=== PATIENT | female | born 1965 | race Caucasian/White ===

== ENCOUNTER 2018-09-28 16:34 | Emergency (ER) | payer OTHER ==
[~2018-09-28] VITALS: Ht 157.5 cm; Wt 102.1 kg
--- OUTSIDE RECORDS SUMMARY | ~2018-09-28 | XMS | Encounter Summary ---
Demographics + + + | Address | [address] | | | [place] [address] | + + + | Home Phone | | + + + | Preferred Language | Unknown | + + + | Marital Status | Single | + + + | Gnosticism Affiliation | Unknown | + + + | Race | Unknown | + + + | Ethnic Group | Unknown | + + + Author + + + | Author | [facility] | | | and [place] | + + + | Organization | [facility] | | | and [place] | + + + | Address | Unknown | + + + | Phone | Unavailable | + + + Support + + +---------+ + | Name | Relationship | Address | Phone | + + +---------+ + | Zoey Mondragon | ECON | Unknown | | + + +---------+ + Care Team Providers + +------+ + | Care Metal Roofer Name | Role | Phone | + +------+ + | Renetta Weinstein DO | PCP | | + +------+ + Reason for Visit + + + | Reason | Comments | + + + | Knee Pain | | + + + Encounter Details +--------+ + + + + | Date | Type | Department | Care Team | Description | +--------+ + + + + | 02// | Telephone | [facility] | Renetta Weinstein | Knee Pain | | 2019 | | [facility] | DO Mounika [address] | | | | | [facility] | [place], [place] | | | | | [address] [place], | [address] | | | | | [place] [address] | [phone] | | | | | [phone] | | | +--------+ + + + + Social History + +-------+ [...] on file | | + + + as of this encounter Plan of Treatment Not on fileas of this encounter Visit Diagnoses Not on filein this encounter"
--- OUTSIDE RECORDS SUMMARY | ~2018-09-28 | XMS | Encounter Summary ---
Demographics + + + | Address | [address] | | | [place] [address] | + + + | Home Phone | | + + + | Preferred Language | Unknown | + + + | Marital Status | Single | + + + | Christian Affiliation | Unknown | + + + | Race | Unknown | + + + | Ethnic Group | Unknown | + + + Author + + + | Author | [facility] | | | and [place] | + + + | Organization | [facility] | | | and [place] | [...] Team Providers + +------+ + | Care Pig Furnace Operator Name | Role | Phone | + +------+ + | Renetta Weinstein DO | PCP | | + +------+ + Reason for Visit + + + | Reason | Comments | + + + | Medication Refill | | + + + Encounter Details +--------+--------+ + + + | Date | Type | Department | Care Team | Description | +--------+--------+ + + + | 08/11/ | Refill | [facility] | Renetta Weinstein | Medication Refill | | 2018 | | [facility] | Mounika, DO [address] | | | | | [address] | [address] [place], [place] | | | | | [address] [place], | [address] | | | | | [place] [address] | [phone] | | | | | [phone] | | | +--------+--------+ + + + Social History + +-------+ [...]
--- OUTSIDE RECORDS SUMMARY | ~2018-09-28 | XMS | Encounter Summary ---
Demographics + + + | Address | [address] | | | [place] [address] | + + + | Home Phone | | + + + | Preferred Language | Unknown | + + + | Marital Status | Single | + + + | Yarsani Affiliation | Unknown | + + + | Race | Unknown | + + + | Ethnic Group | Unknown | + + + Author + + + | Author | [facility] | | | and [place] | + + + | Organization | [facility] | | | and [place] | [...] Team Providers + +------+ + | Care Screen Repairer Crusher Name | Role | Phone | + [...] Description | +--------+--------+ + + + | 09/11/ | Refill | [facility] | Renetta Weinstein | Medication Refill | | 2018 | | [facility] | Mounika, DO [address] | | | | | [address] | [address] [place], [place] | | | | | [address] [place], | [address] | | | | | [place] [address] | [phone] | | | | | [phone] | | | +--------+--------+ + + + [...]
--- OUTSIDE RECORDS SUMMARY | ~2018-09-28 | XMS | Encounter Summary ---
Demographics + + + | Address | [address] | | | [place] [address] | + + + | Home Phone | | + + + | Preferred Language | Unknown | + + + | Marital Status | Single | + + + | Nondenominational Affiliation | Unknown | + + + | Race | Unknown | + + + | Ethnic Group | Unknown | + + + Author + + + | Author | [facility] | | | and [place] | + + + | Organization | [facility] | | | and [place] [...] Team Providers + +------+ + | Care Facilities And Grounds Director Name | Role | Phone | + [...] Description | +--------+--------+ + + + | 07/25/ | Refill | [facility] | Renetta Weinstein | Medication Refill | | 2019 | | [facility] | Mounika, DO [address] | | | | | [address] | [address] [place], [place] | | | | | [address] [place], | [address] | | | | | [place] [address] | [phone] | | | | | [phone] | | | +--------+--------+ + + + [...]
--- OUTSIDE RECORDS SUMMARY | ~2018-09-28 | XMS | Encounter Summary ---
Demographics + + + | Address | [address] | | | [place] [address] | + + + | Home Phone | | + + + | Preferred Language | Unknown | + + + | Marital Status | Single | + + + | Jainism Affiliation | Unknown | + + + | Race | Unknown | + + + | Ethnic Group | Unknown | + + + Author + + + | Author | [facility] | | | and [place] | + + + | Organization | [facility] | | | and [place] [...] Team Providers + +------+ + | Care Solder Technician Name | Role | Phone | + +------+ + | Renetta Weinstein DO | PCP | | + +------+ + Reason for Visit + + + | Reason | Comments | + + + | Medication Question | | + + + Encounter Details +--------+ + + + + | Date | Type | Department | Care Team | Description | +--------+ + + + + | 09/25/ | Telephone | [facility] | Renetta Weinstein | Medication Question | | 2019 | | [facility] | Mounika, DO [address] | | | | | [address] | [place], [place] | | | | | [address] [place], | [address] | | | | | [place] [address] | [phone] | | | | | [phone] | | | +--------+ + + + [...]
--- OUTSIDE RECORDS SUMMARY | ~2018-09-28 | XMS | Clinical Summary ---
Demographics + + + | Address | [address] | | | [place] [address] | + + + | Home Phone | | + + + | Preferred Language | Unknown | + + + | Marital Status | Unknown | + + + | Congregational Affiliation | Unknown | + + + | Race | Unknown | + + + | Ethnic Group | Unknown | + + + Author + + + | Author | [facility] | + + + | Organization | [facility] | + + + | Address | Unknown | + + + | Phone | Unavailable | + + + Support +--------+ +---------+ + | Name | Relationship | Address | Phone | +--------+ +---------+ + | No,One | ECON | Unknown | | +--------+ +---------+ + Care Team Providers + +------+ + | Care Electrical Engineer Mep Name | Role | Phone | + +------+ + | Tasneem Wang PA-C | PP | | + +------+ + Allergies Not on File Current Medications Not on file Active Problems Not on file Social History + +-------+ +--------+------+ | Tobacco Use | Types | Packs/Day | Years | Date | | | | | Used | | + +-------+ +--------+------+ | Never Assessed | | | | | + +-------+ +--------+------+ + + + | Sex Assigned at | Date Recorded | | | | + + + | Not on file | | + + + Plan of Treatment Not on file Results Not on filefrom Last 3 Months Insurance + +--------+ +------+-------+ + | Payer | Benefi | Subscriber | Type | Phone | Address | | | t Plan | ID | | | | | | / | | | | | | | Group | | | | | + +--------+ +------+-------+ + | MEDICAID | [place] | [id number] | | | [address] | | | N | | | | [place], [place] | | | [place] | | | | [address] | | | [employer] | | | | | + +--------+ +------+-------+ + + +--------+ +--------+ + + | Guarantor Name | Accoun | Relation to | Date | Phone | Billing Address | | | t Type | Patient | of | | | | | | | | | | + +--------+ +--------+ + + | ZOEY DURAN | Person | Self | [birth year] | Home: | [address] | | | [place] | | 1965 | [phone] [place] [address] | | | [place] | | [phone] | | + +--------+ +--------+ + +"
--- OUTSIDE RECORDS SUMMARY | ~2018-09-28 | XMS | Clinical Summary ---
Demographics + + + | Address | [address] | | | [place] [address] | + + + | Home Phone | | + + + | Preferred Language | Unknown | + + + | Marital Status | Single | + + + | Moravian Affiliation | Unknown | + + + | Race | Unknown | + + + | Ethnic Group | Unknown | + + + Author + + + | Author | [facility] | | | and [place] | + + + | Organization | [facility] | | | and [place] [...] Providers + +------+ + | Care Unix Consultant Name | Role | Phone | + +------+ + | Renetta Weinstein DO | PP | | + +------+ + Allergies + + + + + + | Active Allergy | Reactions | Severity | Noted | Comments | | | | | Date | | + + + + + + | Penicillins | Nausea And Vomiting | Medium | 10/15/19 | | | | | | 18 | | + + + + + + | Pregabalin | Swelling | High | 10/15/19 | | | | | | 18 | | + + + + + + | Tramadol | Swelling | | 12/21/19 | | | | | | 18 | | + + + + + + Current Medications + + +---------+---------+------+------+-------+ | Prescription | Sig. | Disp. | Refills | Star | End | Statu | | | | | | t | Date | s | | | | | | Date | | | + + +---------+---------+------+------+-------+ | Multiple | Take 1 tablet by | | | | | Activ | | Vitamins-Minerals | mouth Daily. | | | | | e | | (MULTIVITAL PO) | | | | | | | + + +---------+---------+------+------+-------+ | aspirin 81 mg | Take 81 mg by mouth | | | | | Activ | | chewable tablet | Daily. | | | | | e | + + +---------+---------+------+------+-------+ | Cranberry 500 MG | Take 500 mg by mouth | | | | | Activ | | CAPS | 2 times daily. | | | | | e | + + +---------+---------+------+------+-------+ | estradiol | take 1 tablet by | 30 | 3 | 10/3 | | Activ | | (ESTRACE) 0.5 mg | mouth once daily | tablet | | 0/20 | | e | | tablet | | | | 18 | | | + + +---------+---------+------+------+-------+ | omeprazole | take 1 capsule by | 90 | 1 | 12/0 | | Activ | | (PRILOSEC) 40 MG | mouth every morning | capsule | | 7/20 | | e | | capsule | before BREAKFAST | | | 18 | | | + + +---------+---------+------+------+-------+ | ibuprofen | Take 1 tablet by | 90 | 3 | 01/0 | | Activ | | (ADVIL,MOTRIN) 800 | mouth every 8 hours | tablet | | 4/20 | | e | | MG tablet | as needed for Pain. | | | 19 | | | + + +---------+---------+------+------+-------+ | lamoTRIgine | take 1 tablet by | 90 | 1 | 01/0 | | Activ | | (LAMICTAL) 100 mg | mouth once daily | tablet | | 8/20 | | e | | tablet | | | | 19 | | | + + +---------+---------+------+------+-------+ | FLUoxetine | take 2 tablets by | 60 | 0 | 02/2 | | Activ | | (PROZAC) 20 mg | mouth once daily | capsule | | 5/20 | | e | | capsule | | | | 19 | | | + + +---------+---------+------+------+-------+ | | take 1 tablet by | 112 | 0 | 02/2 | | Activ | | acetaminophen-codein | mouth every 6 hours | tablet | | /20 | | e | | e (TYLENOL #3) | if needed for pain | | | 19 | | | | 300-30 mg per tablet | FOR UP TO 28 DAYS | | | | | | + + +---------+---------+------+------+-------+ | | take 1 tablet by | 10 | 3 | / | | Activ | | medroxyPROGESTERone | mouth ON DAYS 1-10 | tablet | | 20 | | e | | (PROVERA) 2.5 mg | OF EVERY MONTH | | | 19 | | | | tablet | | | | | | | + + +---------+---------+------+------+-------+ | | Take 1 tablet by | 10 | 3 | 06/ | 03/0 | Disco | | medroxyPROGESTERone | mouth Daily. 1 tab | tablet | | / | / | ntinu | | (PROVERA) 2.5 mg | daily 1-10 of every | | | 18 | 19 | ed | | tablet | month. Take zero | | | | | | | | tabs day 11-end of | | | | | | | | month | | | | | | + + +---------+---------+------+------+-------+ | FLUoxetine | take 2 capsules by | 60 | 0 | 01/2 | 02/2 | Disco | | (PROZAC) 20 mg | mouth daily | capsule | | 5/20 | 5/20 | ntinu | | capsule | | | | 19 | 19 | ed | + + +---------+---------+------+------+-------+ | | take 1 tablet by | 112 | 0 | 02/0 | 02/2 | Disco | | acetaminophen-codein | mouth every 6 hours | tablet | | /20 | 6/20 | ntinu | | e (TYLENOL #3) | if needed for pain | | | 19 | 19 | ed | | 300-30 mg per tablet | for UP TO 28 DAYS | | | | | | + + +---------+---------+------+------+-------+ Active Problems + + + | Problem | Noted Date | + + + | Precordial pain | 07/21/2018 | + + + + + | Last Assessment & Plan: She woke up with some chest pressure | | and pain that lasted about an hour this morning. Will obtain | | EKG. Blood pressure slightly elevated but she is crying in the | | room because her dog was just hit and killed. She has been | | grieving his loss for the last 2 days. | + + + + + | Primary osteoarthritis of right knee | 04/17/2018 | + + + + + | Last Assessment & Plan: She is having an upcoming knee | | replacement and her pain has been well-controlled on Tylenol 3. | | She would also like a refill of her ibuprofen today as well. | | Medications refilled and follow-up with me in 3 months. 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 This is the same | | advice that her orthopedic surgeon reportedly gave her. I did | | encourage her to follow through with her orthopedist. Abdominal | | #3 and ibuprofen sent to pharmacy. | + + + + + | Acute hip pain, left | 03/31/2018 | + + + + + | Last Assessment & Plan: Plain film of the hip ordered | + + + + + | Kidney stones | 12/20/2017 | + + + | Acute pain of right knee | 12/20/2017 | + + + + + | Last Assessment & Plan: MRI of the knee orderedPhysical | | therapy orderedShe states the ibuprofen worked better than | | diclofenac so she will stop diclofenac and resume ibuprofen. She | | is allergic to Mobic. | + + + +---+ | Bipolar 1 disorder, depressed (HCC) | | + +---+ + + | Last Assessment & Plan: She states she feels excellent on | | telemetry Yony 50 mg and does not want to increase the dose at | | this time. She will remain on 50 mg and follow-up with me in 6 | | months. | + + + +---+ | Arthritis | | + +---+ Encounters +--------+ + + + + | Date | Type | Specialty | Care Team | Description | +--------+ + + + + | 09/25/ | Telephone | | Renetta Weinstein | Medication Question | | 2018 | | | DO Mounika | | +--------+ + + + + | 09/23/ | Refill | | Renetta Weinstein | Medication Refill | | 2018 | | | Mounika DO | | +--------+ + + + + | 09/12/ | Refill | | Js Renetta | Medication Refill | | 2018 | | | Mounika DO | | +--------+ + + + + | 09/11/ | Refill | | Js Renetta | Medication Refill | | 2019 | | | DO Mounika | | +--------+ + + + + | 09/11/ | Telephone | | Renetta Weinstein | Knee Pain | | 2019 | | | DO Mounika | | +--------+ + + + + | 08/18/ | Refill | | Renetta Weinstein | Medication Refill | | 2019 | | | DO Mounika | | +--------+ + + + + | 08/15/ | Telephone | | Js Renetta | Medication Question | | 2018 | | | DO Mounika | | +--------+ + + + + | 08/11/ | Refill | | Renetta Weinstein | Medication Refill | | 2019 | | | DO Mounika | | +--------+ + + + + | 07/25/ | Refill | | Renetta Weinstein | Medication Refill | | 2019 | | | DO Mounika | | +--------+ + + + + | 07/24/ | Refill | | Renetta Weinstein | Medication Refill | | 2019 | | | DO Mounika | | +--------+ + + + + | 07/21/ | Office | | Renetta Weinstein | Primary | | 2019 | Visit | | DO Mounika | osteoarthritis of | | | | | | right knee; | | | | | | Precordial pain | +--------+ + + + + from Last 3 Months Immunizations + + + + | Name | Dates Previously Given | Next Due | + + + + | DTP (PED) | 01/14/1986, 09/14/1970, 1965, | | | | 1965, 1965 | | + + + + | INFLUENZA PF | 04/20/2016 | | | TRIVALENT(PED/ADOL/A | | | | LEYDI BURNHAM | | | + + + + | MMR, 2 DOSE | 09/29/1993, 09/16/1981 | | | (PED/ADULT) | | | + + + + | POLIOVIRUS,OPV | 09/16/1981 | | | (LIVE) | | | + + + + Family History + + +------+ + | Medical History | Relation | Name | Comments | + + +------+ + | Diabetes | Daughter | | | + + +------+ + | Other (see comment) | Daughter | | Kidney stones | + + +------+ + | Hearing loss | Father | | | + + +------+ + | Heart disease | Father | | | + + +------+ + | Arthritis | Mother | | | + + +------+ + + +------+ + + | Relation | Name | Status | Comments | + +------+ + + | Daughter | | Alive | | + +------+ + + | Father | | | | + +------+ + + | Mother | | | | + +------+ + + Social History + +-------+ +--------+------+ | Tobacco Use | Types | Packs/Day | Years | Date | | | | | Used | | + +-------+ +--------+------+ | Never Smoker | | | | | + +-------+ +--------+------+ + +---+---+---+ | Smokeless Tobacco: | | | | | Never Used | | | | + +---+---+---+ + + | Tobacco Cessation: Counseling Given: No | + + + + +---------+ + | Alcohol Use [...] on file | | + + + Last Filed Vital Signs + + + + | Vital Sign | Reading | Time Taken | + + + + | Blood Pressure | 160/91 | 07/21/20181420 PST | + + + + | Pulse | 71 | 07/21/20181420 PST | + + + + | Temperature | 36.1 C (97 F) | 07/21/20181420 PST | + + + + | Respiratory Rate | 16 | 07/21/20181420 PST | + + + + | Oxygen Saturation | 98% | 07/21/20181420 PST | + + + + | Inhaled Oxygen | - | - | | Concentration | | | + + + + | Weight | 101.4 kg (223 lb 9.6 | 07/21/20181420 PST | | | oz) | | + + + + | Height | 157.5 cm (5' 2") | 07/21/20181420 PST | + + + + | Body Mass Index | 40.9 | 07/21/2018 1421 PST | + + + + Plan of Treatment + + + + + | Health Maintenance | Due Date | Last Done | Comments | + + + + + | Hepatitis C | | | | | Screening | 4 | | | + + + + + | PRIMARY CARE | | | | | OUTREACH-MODERATE | 4 | | | | RISK EVERY 1 YEAR | | | | + + + + + | Cervical Cancer | | | | | Screening (Pap) | 4 | | | + + + + + | Vaccine: | | 01/14/1986, 09/14/1970, | | | Dtap/Tdap/Td (6 - | 6 | 1964, Additional history | | | Tdap) | | exists | | + + + + + | BREAST CANCER | | | | | SCREENING (MAMM Q2 | 4 | | | | YEARS 50-74) | | | | + + + + + | Colorectal Cancer | | | | | Screening | 4 | | | | (Colonoscopy) | | | | + + + + + | Vaccine: Zoster (1 | | | | | of 2) | 4 | | | + + + + + | Vaccine: Influenza | | 04/20/2016 | | | (#1) | 8 | | | + + + + + Procedures + +--------+ + + + | Procedure Name | Priori | Date/Time | Associated Diagnosis | Comments | | | ty | | | | + +--------+ + + + | ECG - EXTERNAL SCAN | | 07/25/2018 | | Results for this | | | | 0000 PST | | procedure are in the | | | | | | results section. | + +--------+ + + + | ECG 12 LEAD | Routin | 07/21/2018 | Precordial pain | Results for this | | | e | 1445 PST | | procedure are in the | | | | | | results section. | + +--------+ + + + from Last 3 Months Results ECG - EXTERNAL SCAN (07/25/2018) + + + | Narrative | Performed At | + + + | Ordered by an | | | unspecified provider. | | + + + ECG 12 lead (07/21/2018 1445) + + + | Narrative | Performed At | + + + | Renata DO Js 07/21/2018 14:53 NSR, no Q waves, no ST | [facility] | | morphology | [facility] | + + + + +---------+ + + | Performing | Address | City/State/Zipcode | Phone Number | | Organization | | | | + +---------+ + + | [facility] | | | | + +---------+ + + from Last 3 Months Insurance + +--------+ +--------+ +---------+ | Payer | Benefi | Subscriber | Type | Phone | Address | | | t Plan | ID | | | | | | / | | | | | | | Group | | | | | + +--------+ +--------+ +---------+ | [employer] | [employer] | [id number] | Medica | [phone]- | | | MEDICAID HMO | HEALTH | | id | [id number] | | | | [place] | | | | | | | [place] | | | | | + +--------+ +--------+ +---------+ + +--------+ +--------+ + + | Guarantor Name | Accoun | Relation to | Date | Phone | Billing Address | | | t Type | Patient | of | | | | | | | | | | + +--------+ +--------+ + + | COLLETTE MILLAN | Person | Self | [birth year] | Home: | [address] | | | [place] | | 1965 | [phone] | [place] | | | [place] | | [phone] | + +--------+ +--------+ + +
--- OUTSIDE RECORDS SUMMARY | ~2018-09-28 | XMS | Encounter Summary ---
Demographics + + + | Address | [address] | | | [place] [address] | + + + | Home Phone | | + + + | Preferred Language | Unknown | + + + | Marital Status | Single | + + + | Latter Day Affiliation | Unknown | + + + | Race | Unknown | + + + | Ethnic Group | Unknown | + + + Author + + + | Author | [facility] | | | and [place] | + + + | Organization | [facility] | | | and [place] | [...] Team Providers + +------+ + | Care Document Specialist Name | Role | Phone | + [...] Refill | | 2018 | | [facility] | Mounika, DO [address] | | | | | [address] | [address] [place], [place] | | | | | [address] [place], | [address] | | | | | [place] [address] | [phone] | | | | | [phone] | | | +--------+--------+ + + + [...]
--- OUTSIDE RECORDS SUMMARY | ~2018-09-28 | XMS | Encounter Summary ---
Demographics + + + | Address | [address] | | | [place] [address] | + + + | Home Phone | | + + + | Preferred Language | Unknown | + + + | Marital Status | Single | + + + | Quaker Affiliation | Unknown | + + + | Race | Unknown | + + + | Ethnic Group | Unknown | + + + Author + + + | Author | [facility] | | | and [place] | + + + | Organization | [facility] | | | and [place] [...] Team Providers + +------+ + | Care School Bus Technician Name | Role | Phone | [...] Description | +--------+--------+ + + + | 07/24/ | Refill | [facility] | Renetta Weinstein | Medication Refill | | 2019 | | [facility] | Mounika, DO [address] | | | | | [address] | [address] [place], [place] | | | | | [address] [place], | [address] | | | | | [place] [address] | [phone] | | | | | [phone] | | | +--------+--------+ + + + [...]
--- OUTSIDE RECORDS SUMMARY | ~2018-09-28 | XMS | Encounter Summary ---
Demographics + + + | Address | [address] | | | [place] [address] | + + + | Home Phone | | + + + | Preferred Language | Unknown | + + + | Marital Status | Single | + + + | Oriental Orthodox Affiliation | Unknown | + + + | Race | Unknown | + + + | Ethnic Group | Unknown | + + + Author + + + | Author | [facility] | | | and [place] | + + + | Organization | [facility] | | | and [place] [...] Team Providers + +------+ + | Care Painter Aircraft Name | Role | Phone | + +------+ + | Renetta Weinstein DO | PCP | | + +------+ + Reason for Visit + + + | Reason | Comments | + + + | Knee Pain | right | + + + Encounter Details +--------+---------+ + + + | Date | Type | Department | Care Team | Description | +--------+---------+ + + + | 07/21/ | Office | [facility] | Renetta Weinstein | Primary | | 2019 | Visit | [facility] | DO [address] | osteoarthritis of | | | | [facility] [address] | [address] [place], [place] | right knee; | | | | [address] [place], | [address] | Precordial pain | | | | [place] [address] | [phone] | | | | | [phone] | | | +--------+---------+ + + + [...] + + + as of this encounter Last Filed Vital [...] | Body Mass Index | 40.9 | 07/21/20181420 PST | + + + + in this encounter Progress Renetta Watson, DO - 07/21/2018 1445 PSTFormatting of this note may be different from lizbeth winn. Patient ID: Zoey Duran is a 53 y.o. year old female Chief Complaint Patient presents with Knee Pain right Assessment and Plan: Primary osteoarthritis of right knee She is having an upcoming knee replacement and her pain has been well-controlled on Tylenol 3. She would also like a refill of her ibuprofen today as well. Medications refilled and follow-up with me in 3 months. Precordial pain She woke up with some chest pressure and pain that lasted about an hour this morning. Will obtain EKG. Blood pressure slightly elevated but she is crying in the room because her dog was just hit and killed. She has been grieving his loss for the last 2 days. Subjective: HPI: Patient presents to the clinic for right knee pain. In March of 2018 she had right knee surgery and had relief of the pain. Unfortunately i n April she slipped and re-injured her knee. She will be having a right TKA after she gets her tax return. This morning when she woke up and felt like an "elephant was on her chest". This lasted for an hour and she didn't feel like she was able to get a deep breath. She was debating on goi ng to the ER but decided not to when the pain started to subside. Her dog got hit by a car a couple of days ago. This has been very difficult for her and she has been crying frequently. She adopted him from the assisted 10 years ago. Review of Systems Constitutional: Negative. Musculoskeletal: Positive for arthralgias (Right knee). Psychiatric/Behavioral: Positive for: Grief reaction Objective: Vitals: BP (!) 160/91 | Pulse 71 | Temp 36.1 C (97 F) (Temporal) | Resp 16 | Ht 1.575 m (5' 2") | Wt 101.4 kg (223 lb 9.6 oz) | LMP (LMP Unknown) | SpO2 98% | ? No | BMI 40.90 kg/m Physical Exam Constitutional: She appears well-developed and well-nourished. HENT: Head: Normocephalic and atraumatic. Cardiovascular: Normal rate and regular rhythm. Pulmonary/Chest: Effort normal and breath sounds normal. Neurological: She is alert. Psychiatric: Crying the entire visit Entered by Mikaela Cooley CNA 2, [facility], acting as scribe for Dr. Js DO The documentation recorded by the scribe accurately reflects the service I personally perfo ed and the decisions made by me. Electronically signed by: Renetta Weinstein DO 07/21/2018 14:54 Note: Part of this report was transcribed using voice recognition software. Every effort wa s made to ensure accuracy. However, inadvertent computerized polygraph operator errors may be pre sent.in this encounter Plan of Treatment Not on fileas of this encounter Procedures + +--------+ + + + | [...] section. | + +--------+ + + + in this encounter Results ECG - EXTERNAL SCAN (07/25/2018) + + + | Narrative | Performed At | + + + | Ordered by an | | | unspecified provider. | | + + + ECG 12 lead (07/21/2018 1445) + + + | Narrative | Performed At | + + + | Renetta Weinstein 07/21/2018 14:53 NSR, no Q waves, no ST | [facility] | | morphology | [facility] | + + + + +---------+ + + | Performing | Address | City/State/Zipcode | Phone Number | | Organization | | | | + +---------+ + + | [facility] | | | | + +---------+ + + in this encounter Visit Diagnoses + + | Diagnosis | + + | Primary osteoarthritis of right knee | + + | Primary localized osteoarthrosis, lower leg | + + | Precordial pain | + +
--- OUTSIDE RECORDS SUMMARY | ~2018-09-28 | XMS | Encounter Summary ---
Demographics + + + | Address | [address] | | | [place] [address] | + + + | Home Phone | | + + + | Preferred Language | Unknown | + + + | Marital Status | Single | + + + | Mandaeism Affiliation | Unknown | + + + | Race | Unknown | + + + | Ethnic Group | Unknown | + + + Author + + + | Author | [facility] | | | and [place] | + + + | Organization | [facility] | | | and [place] [...] Team Providers + +------+ + | Care Fourth Officer Name | Role | Phone | + [...] Question | | 2019 | | [facility] | Mounika, DO [address] | | | | | [facility] | [facility], [place] | | | | | [address] [place], | [address] | | | | | [place] [address] | [phone] | | | | | [phone] | | | +--------+ + + + [...]
--- OUTSIDE RECORDS SUMMARY | ~2018-09-28 | XMS | Encounter Summary ---
Demographics + + + | Address | [address] | | | [place] [address] | + + + | Home Phone | | + + + | Preferred Language | Unknown | + + + | Marital Status | Single | + + + | Presybeterian Affiliation | Unknown | + + + | Race | Unknown | + + + | Ethnic Group | Unknown | + + + Author + + + | Author | [facility] | | | and [place] | + + + | Organization | [facility] | | | and [place] [...] Team Providers + +------+ + | Care Hplc Chemist Name | Role | Phone | + [...] Description | +--------+--------+ + + + | 08/18/ | Refill | [facility] | Renetta Weinstein | Medication Refill | | 2018 | | [facility] | Mounika, DO [address] | | | | | [facility] | [address] [place], [place] | | | | | [address] [place], | [address] | | | | | [place] [address] | [phone] | | | | | [phone] | | | +--------+--------+ + + + [...]
--- OUTSIDE RECORDS SUMMARY | ~2018-09-28 | XMS | Encounter Summary ---
Demographics + + + | Address | [address] | | | [place] [address] | + + + | Home Phone | | + + + | Preferred Language | Unknown | + + + | Marital Status | Single | + + + | Hindu Affiliation | Unknown | + + + | Race | Unknown | + + + | Ethnic Group | Unknown | + + + Author + + + | Author | [facility] | | | and [place] | + + + | Organization | [facility] | | | and [...] Team Providers + +------+ + | Care Strainer Tender Name | Role | Phone | [...] Refill | | 2018 | | [facility] | Mounika, DO [address] | | | | | [facility] | [address] [place], [place] | | | | | [address] [place], | [address] | | | | | [place] [address] | [phone] | | | | | [phone] | | | +--------+--------+ + + + [...]
--- OUTSIDE RECORDS SUMMARY | ~2018-09-28 | XMS | Clinical Summary ---
Demographics + + + | Address | [address] | | | [place] [address] | + + + | Home Phone [...] + + + | Author | [facility] | | | and [place] | + + + | Organization | [facility] | | | and [place] [...] Team Providers + +------+ + | Care Spout Positioner Name | Role | Phone | + [...] | [employer] | [employer] | [id number] | [employer] | [phone] | | | [...] | Self | [birth year] | Home: | [address] | | | [place] | | 1965 | [phone] | [place] | | | [place] | | | [phone] | + +--------+ +--------+ + +
--- OUTSIDE RECORDS SUMMARY | ~2018-09-28 | XMS | Encounter Summary ---
Demographics + + + | Address | [address] | | | [place] [address] | + + + | Home Phone | | + + + | Preferred Language | Unknown | + + + | Marital Status | Single | + + + | Islam Affiliation | Unknown | + + + | Race | Unknown | + + + | Ethnic Group | Unknown | + + + Author + + + | Author | [facility] | | | and [place] | + + + | Organization | [facility] | [...] Team Providers + +------+ + | Care Associate Professor Computer Science Name | Role | Phone | + [...] | | 2018 | | [facility] | Mounika, DO [address] | | | | | [facility] | [address] [place], [place] | | | | | [address] [place], | [address] | | | | | [place] [address] | [phone] | | | | | [phone] | | | +--------+--------+ + + + [...]
--- OUTSIDE RECORDS SUMMARY | ~2018-09-28 | XMS | Encounter Summary ---
Demographics + + + | Address | [address] | | | [place] [address] | + + + | Home Phone | | + + + | Preferred Language | Unknown | + + + | Marital Status | Single | + + + | Yazdanism Affiliation | Unknown | + + + | Race | Unknown | + + + | Ethnic Group | Unknown | + + + Author + + + | Author | [facility] | | | and [place] | + + + | Organization | [facility] | | | and [...] Team Providers + +------+ + | Care Glue Jointer Feeder Name | Role | Phone | + [...] Refill | | 2018 | | [facility] | Mounika, DO [address] | | | | | [facility] [address] | [address] [place], [place] | | | | | [address] [place], | [address] | | | | | [place] [address] | [phone] | | | | | [phone] | | | +--------+--------+ + + + [...]
--- OUTSIDE RECORDS SUMMARY | ~2018-09-28 | XMS | Encounter Summary ---
Demographics + + + | Address | [address] | | | [place] [address] | + + + | Home Phone | | + + + | Preferred Language | Unknown | + + + | Marital Status | Single | + + + | Gnosticist Affiliation | Unknown | + + + | Race | Unknown | + + + | Ethnic Group | Unknown | + + + Author + + + | Author | [facility] | | | and [place] | + + + | Organization | [facility] | | | and [place] | [...] Team Providers + +------+ + | Care Automatic Beam Warper Tender Name | Role | Phone | [...] Refill | | 2018 | | [facility] | Mounika, DO [address] | | | | | [address] | [address] [place], [place] | | | | | [address] [place], | [address] | | | | | [place] [address] | [phone] | | | | | [phone] | | | +--------+--------+ + + + [...]
--- OUTSIDE RECORDS SUMMARY | ~2018-09-28 | XMS | Encounter Summary ---
Demographics + + + | Address | [address] | | | [place] [address] | + + + | Home Phone | | + + + | Preferred Language | Unknown | + + + | Marital Status | Single | + + + | Voodoo Affiliation | Unknown | + + + | Race | Unknown | + + + | Ethnic Group | Unknown | + + + Author + + + | Author | [facility] | | | and [place] | + + + | Organization | [facility] | | | and [place] [...] Team Providers + +------+ + | Care Occupancy Specialist Name | Role | Phone | [...] | | MED[address] | [address] [place], [place] | | | | | [address] [place], | [address] | | | | | [place] [address] | [phone] | | | | | [phone] | | | +--------+--------+ + + + [...]
--- OUTSIDE RECORDS SUMMARY | ~2018-09-28 | XMS | Encounter Summary ---
Demographics + + + | Address | [address] | | | [place] [address] | + + + | Home Phone | | + + + | Preferred Language | Unknown | + + + | Marital Status | Single | + + + | Sabianism Affiliation | Unknown | + + + | Race | Unknown | + + + | Ethnic Group | Unknown | + + + Author + + + | Author | [facility] | | | and [place] | + + + | Organization | [facility] | | | and [place] | [...] Team Providers + +------+ + | Care Heater Installer Name | Role | Phone | + [...] + + | 08/15/ | Telephone | [facility] | Renetta Weinstein | Medication Question | | 2019 | | [facility] | Mounika, DO [address] | | | | | [address] | [facility], [place] | | | | | [address] [place], | [address] | | | | | [place] [address] | [phone] | | | | | [phone] | | | +--------+ + + + [...]
--- OUTSIDE RECORDS SUMMARY | ~2018-09-28 | XMS | Encounter Summary ---
Demographics + + + | Address | [address] | | | [place] [address] | + + + | Home Phone | | + + + | Preferred Language | Unknown | + + + | Marital Status | Single | + + + | Yazidism Affiliation | Unknown | + + + | Race | Unknown | + + + | Ethnic Group | Unknown | + + + Author + + + | Author | [facility] | | | and [place] | + + + | Organization | [facility] | | | and [...] Team Providers + +------+ + | Care Book Packer Name | Role | Phone | [...] | | [address] [place], | [address] | Precordial pain | | | | [place] [address] | [phone] | | | | | [phone] | | | +--------+---------+ + + + [...] crying frequently. She adopted him from the senior living 10 years ago. Review of Systems Constitutional: [...] visit Entered by Mikaela Cooley CNA 2, [facility], acting as scribe for Dr. Js DO The documentation recorded by the scribe accurately reflects the service I personally perfo ed and the decisions made by me. Electronically signed by: Renetta Weinstein DO 07/21/2018 14:54 Note: Part of this report was transcribed using voice recognition software. Every effort wa s made to ensure accuracy. However, inadvertent computerized shopping investigator errors may be pre sent.in this encounter [...]
--- OUTSIDE RECORDS SUMMARY | ~2018-09-28 | XMS | Encounter Summary ---
Demographics + + + | Address | [address] | | | [place] [address] | + + + | Home Phone | | + + + | Preferred Language | Unknown | + + + | Marital Status | Single | + + + | Mandaen Affiliation | Unknown | + + + | Race | Unknown | + + + | Ethnic Group | Unknown | + + + Author + + + | Author | [facility] | | | and [place] | + + + | Organization | [facility] | | | and [place] [...] Team Providers + +------+ + | Care Flag Decorator Name | Role | Phone | + [...] Refill | | 2019 | | [facility] | Mounika, DO [address] | | | | | [address] | [address] [place], [place] | | | | | [address] [place], | [address] | | | | | [place] [address] | [phone] | | | | | [phone] | | | +--------+--------+ + + + [...]
--- OUTSIDE RECORDS SUMMARY | ~2018-09-28 | XMS | Encounter Summary ---
Demographics + + + | Address | [address] | | | [place] [address] | + + + | Home Phone | | + + + | Preferred Language | Unknown | + + + | Marital Status | Single | + + + | Holiness Affiliation | Unknown | + + + | Race | Unknown | + + + | Ethnic Group | Unknown | + + + Author + + + | Author | [facility] | | | and [place] | + + + | Organization | [facility] | | | and [place] [...] Team Providers + +------+ + | Care Lead Die Molder Name | Role | Phone | + [...] Refill | | 2019 | | [facility] | Mounika, DO [address] | | | | | [address] | [address] [place], [place] | | | | | [address] [place], | [address] | | | | | [place] [address] | [phone] | | | | | [phone] | | | +--------+--------+ + + + [...]
--- OUTSIDE RECORDS SUMMARY | ~2018-09-28 | XMS | Clinical Summary ---
Demographics + + + | Address | [address] | | | [place] [address] | + + + | Home Phone | | + + + | Preferred Language | Unknown | + + + | Marital Status | Unknown | + + + | Restoration Affiliation | Unknown | + + + | Race | Unknown | + + + | Ethnic Group | Unknown | + + + Author + + + | Author | [facility] | + + + | Organization | [facility] | + + + | Address | Unknown | + + + | Phone | Unavailable | + + + Support +--------+ +---------+ + | Name | Relationship | Address | Phone | +--------+ +---------+ + | No,One | ECON | Unknown | | +--------+ +---------+ + Care Team Providers + +------+ + | Care Harbor Patrol Police Name | Role | Phone | + [...] +------+-------+ + | MEDICAID | [place] | [id number] | | | [address] | | | [address] | | | | [place], [place] | | | [place] | | | | [address] | | | ENGINE WATCHMAN | | | | | + +--------+ [...] | Self | [birth year] | Home: | [address] | | | [place] | | 1965 | [phone] | [place] [address] | | | [place] | | | [phone] | | + +--------+ +--------+ + +"
--- OUTSIDE RECORDS SUMMARY | ~2018-09-28 | XMS | Encounter Summary ---
Demographics + + + | Address | [address] | | | [place] [address] | + + + | Home Phone | | + + + | Preferred Language | Unknown | + + + | Marital Status | Single | + + + | Mosque Affiliation | Unknown | + + + | Race | Unknown | + + + | Ethnic Group | Unknown | + + + Author + + + | Author | [facility] | | | and [place] | + + + | Organization | [facility] | | | and [...] Team Providers + +------+ + | Care Personal Investment Adviser Name | Role | Phone | + [...] | | MED[address] | [address] [facility] [place] | | | | | [address] [facility], | [address] | | | | | [place] [address] | [phone] | | | | | [phone] | | | +--------+ + + + [...]
--- OUTSIDE RECORDS SUMMARY | ~2018-09-28 | XMS | Encounter Summary ---
Demographics + + + | Address | [address] | | | [place] [address] | + + + | Home Phone [...] + + + | Author | [facility] | | | and [place] | + + + | Organization | [facility] | | | and [...] Team Providers + +------+ + | Care Acting Section Chief Name | Role | Phone | + [...] Question | | 2019 | | [facility] | oMunika, DO [address] | | | | | [address] | [place], [place] | | | | | [address] [place], | [address] | | | | | [place] [address] | [phone] | | | | | [phone] | | | +--------+ + + + [...]
--- OUTSIDE RECORDS SUMMARY | ~2018-09-28 | XMS | Encounter Summary ---
Demographics + + + | Address | [address] | | | [place] [address] | + + + | Home Phone [...] + | Author | [facility] | | | and [place] | + + + | Organization | [facility] | | | and [...] Team Providers + +------+ + | Care Solid Tire Tuber Machine Operator Name | Role | Phone | [...] Refill | | 2018 | | [facility] | Mounika, DO [address] | | | | | [address] | [address] [place], [place] | | | | | [address] [place], | [address] | | | | | [place] [address] | [phone] | | | | | [phone] | | | +--------+--------+ + + + [...]
[~2018-09-28 16:34] MED LIST: ADVIL200 M1 PO; AMBIEN5 MG PO; ASPIR 8181 MG PO; ASPIR-LOW81 MG PO; ATIVAN1 MG PO; BACLOFEN10 MG PO; CENTRAL-VITE H1 EACH PO; ESTRADIOL0.5 MG PO; FLOMAX0.4 MG PO; FLUOXETINE HCL40 MG PO; IBU800 MG PO; IBUPROFEN600 MG PO; KETOROLAC TROME10 MG PO; LAMICTAL100 MG PO; MEDROXYPROGEST2.5 MG PO; MOBIC15 MG PO; NAPROSYN500 MG PO; NORCO 5-325 TA1 EACH PO; PERCOCET 5-3251 EACH PO; PYRIDIUM200 MG PO; TRAZODONE HCL50 MG PO; TYLENOL WITH C1 EACH PO; VICODIN 5-3001 EACH PO; XANAX0.25 MG PO; ZOFRAN ODT4 MG PO; ZOFRAN ODT4 MG SL; ZOFRAN ODT8 MG SL; ZOLOFT50 MG PO
--- OUTSIDE RECORDS SUMMARY | 2018-09-28 16:36 | XMS ---
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 EJose VISIT COUNT (12 MO.) 1 [facility] 1 CHUCK IonaJose Enrique Guallpa TOTAL 2 NOTE: Visits indicate total known visits. ED/UCC VISIT TRACKING (12 MO.) 09/28/2018 16:34 [facility] [place] TYPE: Emergency COMPLAINT: - CHEST PAIN 01/02/2018 21:25 [facility] [place] TYPE: Emergency COMPLAINT: - FELL L HAND ELBOW AND R KNEE INJURY INPATIENT VISIT TRACKING (12 MO.) No inpatient visits to display in this time frame [email or web address]
[2018-09-28] MEDS ORDERED: XANAX0.5 MG PO (18:02)
--- NOTE | 2018-09-28 21:16 | EKG ---
[facility] [address], [place] [address] Signed Normal sinus rhythm Normal ECG No previous ECGs available Confirmed by YAAKOV HAWKINS MD ([id number]) on 09/28/2018 9:16:08 PM Electronically Signed By: YAAKOV HAWKINS MD 09/28/18 2116 PATIENT NAME: COLLETTE MILLAN Electrocardiogram DATE OF : 63 PHYSICIAN: YAAKOV HAWKINS MD REPORT #: [id number] REPORT IS CONFIDENTIAL AND NOT TO BE RELEASED WITHOUT AUTHORIZATION
== END 2018-09-28 18:10 | disposition home or self-care (01) ==
LOC: ED 16:34
DX: R07.9 Chest pain, unspecified (principal); I10 Essential (primary) hypertension; I25.2 Old myocardial infarction; Z87.442 Personal history of urinary calculi; Z88.5 Allergy status to narcotic agent; Z88.8 Allergy status to other drugs, medicaments and biological substances; Z79.899 Other long term (current) drug therapy; Z79.82 Long term (current) use of aspirin
CPT/HCPCS: 71045; 80053; 84484; 85025; 93005; 93010; 99285-25

== ENCOUNTER 2018-11-25 17:04 | Emergency (ER) | payer OTHER ==
[~2018-11-25] VITALS: Ht 157.5 cm; Wt 102.1 kg
--- OUTSIDE RECORDS SUMMARY | ~2018-11-25 | XMS | Encounter Summary ---
Demographics + + + | Address | [address] | | | [place] [address] | + + + | Home Phone | | + + + | Preferred Language | Unknown | + + + | Marital Status | Single | + + + | Anabaptism Affiliation | Unknown | + + + | Race | Unknown | + + + | Ethnic Group | Unknown | + + + Author + + + | Author | [facility] | | | and [place] | + + + | Organization | [facility] | | | and [place] | + + + | Address | Unknown | + + + | Phone | Unavailable | + + + Support + + +---------+ + | Name | Relationship | Address | Phone | + + +---------+ + | Zoey Mondragon | ECON | Unknown | | + + +---------+ + Care Team Providers + +------+ + | Care Blasting Helper Name | Role | Phone | + +------+ + | Renetta Weinstein DO | PCP | | + +------+ + Reason for Visit + + + | Reason | Comments | + + + | Knee Pain | right knee pain. flare up x 4 days. 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[address] | osteoarthritis of | | | | [facility] [address] | [place] [address] | right knee | | | | [address] [place], | [phone] | | | | | [place] [address] | | | | | | [phone] | | | +--------+---------+ + + + Social History + +-------+ +--------+------+ | Tobacco Use | Types | Packs/Day | Years | Date | | | | | Used | | + +-------+ +--------+------+ | Never Smoker | | | | | + +-------+ +--------+------+ + +---+---+---+ | Smokeless Tobacco: | | | | | Never Used | | | | + +---+---+---+ + + +---------+ + | Alcohol Use | Drinks/We | oz/Week | Comments | | | ek | | | + + +---------+ + | Yes | 0 | 0.0 - | rare 1-2 a year | | | Glasses | 0.6 | | | | of wine | | | | | 0 Cans of | | | | | beer 0 | | | | | Shots of | | | | | liquor | | | | | 0-1 | | | | | Standard | | | | | drinks or | | | | | | | | | | equivalen | | | | | t | | | + + +---------+ + + + + | Sex Assigned at | Date Recorded | | | | + + + | Not on file | | + + + + + + + | Job Start Date | Occupation | Industry | + + + + | Not on file | Not on file | Not on file | + + + + + + + + | Travel History | Travel Start | Travel End | + + + + + + | No recent travel history available. | + + documented as of this encounter Last Filed Vital Signs + + + + | Vital Sign | Reading | Time Taken | + + + + | Blood Pressure | 140/82 | 10/06/20181006 PDT | + + + + | Pulse | 70 | 10/06/20181006 PDT | + + + + | Temperature | 36.8 C (98.3 F) | 10/06/20181006 PDT | + + + + | Respiratory Rate | 16 | 10/06/20181006 PDT | + + + + | Oxygen Saturation | 97% | 10/06/20181006 PDT | + + + + | Inhaled Oxygen | - | - | | Concentration | | | + + + + | Weight | 100.7 kg (222 lb) | 10/06/2018 1007 PDT | + + + + | Height | 157.5 cm (5' 2") | 10/06/2018 1007 PDT | + + + + | Body Mass Index | 40.6 | 10/06/2018 1007 PDT | + + + + documented in this encounter Patient Instructions Patient Instructions Teresa Kingsley FNP - 10/06/2018 10:34 PDTFormatting of this note migh t be different from the original. Knee Pain Knee pain is very common. It s especially common in active people who put a lot of pressu re on their knees, like runners. It affects women more often than men. Your kneecap (patella) is a thick, round bone. It covers and protects the front portion of your knee joint. It moves along a groove in your thighbone (femur) as part of the patellofem oral joint. A layer of cartilage surrounds the underside of your kneecap. This layer protect s it from grinding against your femur. When this cartilage softens and breaks down, it can cause knee pain. This is partly because of repetitive stress. The stress irritates the lining of the joint. This causes pain in the underlying bone. What causes knee pain? Many things can cause knee pain. You may have more than one cause. Some of these include: Overuse of the knee joint The kneecap doesn t line up with the tissue around it Damage to small nerves in the area Damage to the ligament-like structure that holds the kneecap in place (retinaculum) Breakdown of the bone under the cartilage Swelling in the soft tissues around the kneecap Injury You might be more likely to have knee pain if you: Exercise a lot Recently increased the intensity of your workouts Have a body mass index (BMI) greater than 25 Have poor alignment of your kneecap Walk with your feet turned overly outward or inward Have weakness in surrounding muscle groups (inner quad or hip adductor muscles) Have too much tightness in surrounding muscle groups (hamstrings or iliotibial band) Have a recent history of injury to the area Are female Symptoms of knee pain This type of knee pain is a dull, aching pain in the front of the knee in the area under an d around the kneecap. This pain may start quickly or slowly. Your pain might be worse when y ou squat, run, or sit for a long time. You might also sometimes feel like your knee is givin g out. You may have symptoms in one or both of your knees. Diagnosing knee pain Your healthcare provider will ask about your medical history and your symptoms. Be sure to describe any activities that make your knee pain worse. He or she will look at your knee. Th is will include tests of your range of motion, strength, and areas of pain of your knee. You r knee alignment will be checked. Your healthcare provider will need to rule out other causes of your knee pain, such as arth ritis. You may need an imaging test, such as an X-ray or MRI. Treatment for knee pain Treatments that can help ease your symptoms may include: Avoiding activities for a while that make your pain worse, returning to activity over ti me Icing the outside of your knee when it causes you pain Taking ptom-tsw-utwvtbb pain medicine Wearing a knee brace or taping your knee to support it Wearing special shoe inserts to help keep your feet in the proper alignment Doing special exercises to stretch and strengthen the muscles around your hip and your k nee These steps help most people manage knee pain. But some cases of knee pain need to be treat ed with surgery. You may need surgery right away. Or you may need it later if other treatmen ts don t work. Your healthcare provider may refer you to an orthopedic surgeon. He or she will talk with you about your choices. Preventing knee pain Losing weight and correcting excess muscle tightness or muscle weakness may help lower your risk. In some cases, you can prevent knee pain. To help prevent a flare-up of knee pain, you do t hese things: Regularly do all the exercises your doctor or physical therapist advises Support your knee as advised by your doctor or physical therapist Increase training gradually, and ease up on training when needed Have an expert check your gait for running or other sporting activities Stretch properly before and after exercise Replace your running shoes regularly Lose excess weight When to call your healthcare provider Call your healthcare provider right away if: Your symptoms don t get better after a few weeks of treatment You have any new symptoms Date Last Reviewed: 10/16/201619999233-6667 [employer]. [address] [place] [address]. All righ ts reserved. This information is not intended as a substitute for professional medical care. Always follow your healthcare professional's instructions. documented in this encounter Progress Notes Teresa Kingsley FNP - 10/06/2018 1130 PDTFormatting of this note might be different from th ahmet original. Assessment & Plan: Primary osteoarthritis of right knee Assessment & Plan: Exacerbation of chronic right knee pain. Patient has long history of arthritic knee pain w ith meniscus tear and prior surgical repair. Recent fall exacerbating chronic pain. Schedu led for replacement on October 23. Patient's PCP is out of the office. Has been taking ibupro fen and Tylenol No. 3 as prescribed without relief from pain. EMR reviewed, PDMP reviewed. Will give patient Rx for short course of pain meds through the weekend until she can follow -up with PCP or surgeon. Rx given for hydrocodone 10 mg take one half a tab every 12 hours when necessary pain. Continue ibuprofen as prescribed and may take Tylenol No. 3 daily. Du ring The day for breakthrough pain. Other orders - Ketorolac Tromethamine; Inject 2 mLs into the muscle once. - HYDROcodone-Acetaminophen; Take 0.5 tablets by mouth Twice daily as needed for Pain. Dispense: 6 tablet; Refill: 0 Subjective: Patient ID: Zoey Duran is a 53 y.o. female. Chief Complaint Patient presents with Knee Pain right knee pain. flare up x 4 days. Patient is a 53-year-old female who presents to walk-in clinic for evaluation. Patient com plains of right knee pain. States has had recurrent issues. She is scheduled for a total k nee replacement on October 23, 2018. She states at the end of August she fell landing on bot h her knees. States since that time has had episodes of increased knee pain. States pain h as increased significantly over the last 4 days. States Tylenol 3 is not controlling pain. States she is supplementing with ibuprofen however her pain is still out of control. Patient's medications, allergies, past medical, surgical, social and family histories were obtained and reviewed as appropriate. Review of Systems Objective: BP 140/82 | Pulse 70 | Temp 36.8 C (98.3 F) (Oral) | Resp 16 | Ht 1.575 m (5' 2") | Wt 100.7 kg (222 lb) | LMP (LMP Unknown) | SpO2 97% | BMI 40.60 kg/m Physical Exam Constitutional: She is oriented to person, place, and time. She appears well-developed. Cardiovascular: Normal rate. Musculoskeletal: Abnormal gait secondary to right knee pain Neurological: She is alert and oriented to person, place, and time. Skin: Skin is warm. Nursing note and vitals reviewed. Electronically signed by: AKASH Henriquez, 10/06/2018 14:42 This note was transcribed using voice recognition software; there may be speech recognition errors which escaped detection during review. documented in this encounter Plan of Treatment Not on filedocumented as of this encounter Visit Diagnoses + + | Diagnosis | + + | Primary osteoarthritis of right knee Primary localized osteoarthrosis, lower leg | + + documented in this encounter Administered Medications + +--------+ +-------+------+ + | Medication Order | MAR | Action | Dose | Rate | Site | | | Action | Date | | | | + +--------+ +-------+------+ + | ketorolac (TORADOL) injection | Given | 10/07/19 | 60 mg | | Ventrogl | | 60 mg 60 mg, Intramuscular, | | 19 14:24 | | | uteal-Ri | | ONCE, 10/06/18 at 1045, For 1 | | PDT | | | ght | | dose | | | | | | + +--------+ +-------+------+ + +---+---+ | | | +---+---+ documented in this encounter
--- OUTSIDE RECORDS SUMMARY | ~2018-11-25 | XMS | Encounter Summary ---
Demographics + + + | Address | [address] | | | [place] [address] | + + + | Home Phone | | + + + | Preferred Language | Unknown | + + + | Marital Status | Single | + + + | Synagogue Affiliation | Unknown | + + + | Race | Unknown | + + + | Ethnic Group | Unknown | + + + Author + + + | Author | [facility] | | | and [place] | + + + | Organization | [facility] | | | and [...] Team Providers + +------+ + | Care Unix Analyst Name | Role | Phone | + +------+ + | Renetta Weinstein DO | PCP | | + +------+ + Reason for Visit + + + | Reason | Comments | + + + | Medication | | | Management | | + + + Encounter Details +--------+---------+ + + + | Date | Type | Department | Care Team | Description | +--------+---------+ + + + | 11/10/ | Office | [facility] | Renetta Weinstein | Primary | | 2019 | Visit | [facility] | Mounika DO [address] | osteoarthritis of | | | | [facility] [address] | [place], [place] | right knee; Anxiety | | | | [address] [place], | [address] | | | | | [place] [address] | [phone] | | | | | [phone] | | | +--------+---------+ + + + [...] + + + | Blood Pressure | 138/79 | 11/10/2018 1306 PDT | + + + + | Pulse | 80 | 11/10/20181305 PDT | + + + + | Temperature | 37 C (98.6 F) | 11/10/20181305 PDT | + + + + | Respiratory Rate | 16 | 11/10/20181305 PDT | + + + + | Oxygen Saturation | 99% | 11/10/20181305 PDT | + + + + | Inhaled Oxygen | - | - | | Concentration | | | + + + + | Weight | 95.9 kg (211 lb 6.4 | 11/10/20181305 PDT | | | oz) | | + + + + | Height | - | - | + + + + | Body Mass Index | 38.67 | 10/06/2018 1007 PDT | + + + + documented in this encounter Patient Instructions Patient Instructions Mikaela Cooley CNA - 11/10/2018 13:00 PDT-Jason shaffer teaElectr onically signed by Mikaela Cooley CNA at 11/10/2018 13:18 PDT documented in this encounter Progress Notes Renetta Weinstein, - 11/10/2018 1300 PDT Patient ID: Zoey Duran is a 53 y.o. year old female Chief Complaint Patient presents with Medication Management Assessment and Plan: Primary osteoarthritis of right knee Has upcoming knee replacement surgery in February. She is due for refill of her Tylenol No. 3. We refilled that today for her. Follow-up with me in February or March after knee rep lacement. Anxiety She is having some situational anxiety surrounding her brother's cancer diagnosis. She is using trazodone when necessary at bedtime. We discussed nonpharmacologic options such as bl urring or tea or T. Discussed yoga, exercise and getting plenty of sleep. Subjective: HPI: Patient presents to the clinic for medication review. Her brother was recently diagnosed with lung cancer. On Tuesday she will be traveling to [facility] to see him and will be gone for about two weeks. She states that with her brother's new diagnoses she has been under increased stress. She t akes a Trazodone at night to help her sleep but would like to try something non-medication f or her anxiety. In February she will be getting a knee replacement. She recently got an injection and is usin g Tylenol #3 for pain control. Review of Systems Constitutional: Negative. Musculoskeletal: Positive for arthralgias. Psychiatric/Behavioral: The patient is nervous/anxious. Objective: Vitals: BP 138/79 Comment: right arm large cuff auto | Pulse 80 Comment: reg | Temp 37 C (98.6 F) (Temporal) | Resp 16 | Wt 95.9 kg (211 lb 6.4 oz) | LMP (LMP Unknown) | SpO2 99% Com ment: ra | BMI 38.67 kg/m Physical Exam Constitutional: She is oriented to person, place, and time. She appears well-developed and well-nourished. HENT: Head: Normocephalic and atraumatic. Neurological: She is alert and oriented to person, place, and time. Psychiatric: She has a normal mood and affect. Entered by Mikaela Cooley CNA 2, [facility], acting as scribe for Dr. Js DO The documentation recorded by the scribe accurately reflects the service I personally perfo rmed and the decisions made by me. Electronically signed by: Renetta Weinstein DO 11/10/2018 13:23 Note: Part of this report was transcribed using voice recognition software. Every effort wa s made to ensure accuracy. However, inadvertent computerized wardrobe specialty worker errors may be pre sent. documented in thi s encounter Plan of Treatment Not on filedocumented as of this encounter Visit Diagnoses + + | Diagnosis | + + | Primary osteoarthritis of right knee Primary localized osteoarthrosis, lower leg | + + | Anxiety Anxiety state, unspecified | + + documented in this encounter"
--- OUTSIDE RECORDS SUMMARY | ~2018-11-25 | XMS | Encounter Summary ---
Demographics + + + | Address | [address] | | | [place] [address] | + + + | Home Phone | | + + + | Preferred Language | Unknown | + + + | Marital Status | Single | + + + | Samaritan Affiliation | Unknown | + + + | Race | Unknown | + + + | Ethnic Group | Unknown | + + + Author + + + | Author | [facility] | | | and [place] | + + + | Organization | [facility] | | | and [...] Team Providers + +------+ + | Care Hospital Aides And Assistants Teacher Name | Role | Phone | + [...] Description | +--------+--------+ + + + | 10/09/ | Refill | [facility] | Renetta Weinstein | Medication Refill | | 2018 | | [facility] | Mounika, DO [address] | | | | | [address] | [facility], [place] | | | | | [address] [place], | [address] | | | | | [place] [address] | [phone] | | | | | [phone] | | | +--------+--------+ + + + [...] + + documented as of this encounter Plan of Treatment Not on filedocumented as of this encounter Visit Diagnoses Not on filedocumented in this encounter"
--- OUTSIDE RECORDS SUMMARY | ~2018-11-25 | XMS | Encounter Summary ---
Demographics + + + | Address | [address] | | | [place] [address] | + + + | Home Phone | | + + + | Preferred Language | Unknown | + + + | Marital Status | Single | + + + | Hoahaoism Affiliation | Unknown | + + + | Race | Unknown | + + + | Ethnic Group | Unknown | + + + Author + + + | Author | [facility] | | | and [place] | + + + | Organization | [facility] | | | [...] Team Providers + +------+ + | Care Peat Shredder Tender Name | Role | Phone | + [...] Refill | | 2018 | | [facility] | Mounika, DO [address] | | | | | [address] | [facility], [place] | | | | | [address] [place], | [address] | | | | | [place] [address] | [phone] | | | | | [phone] | | | +--------+--------+ + + + [...]
--- OUTSIDE RECORDS SUMMARY | ~2018-11-25 | XMS | Encounter Summary ---
Demographics + + + | Address | [address] | | | [place] [address] | + + + | Home Phone | | + + + | Preferred Language | Unknown | + + + | Marital Status | Single | + + + | Adventist Affiliation | Unknown | + + + | Race | Unknown | + + + | Ethnic Group | Unknown | + + + Author + + + | Author | [facility] | | | and [place] | + + + | Organization | [facility] | | | and [...] Team Providers + +------+ + | Care Qualitative Field Coordinator Name | Role | Phone | + [...] Primary | | 2019 | Visit | [facility] | 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 [address] [place] [address]. All righ ts reserved. This information is [...]
--- OUTSIDE RECORDS SUMMARY | ~2018-11-25 | XMS | Encounter Summary ---
Demographics + + + | Address | [address] | | | [place] [address] | + + + | Home Phone | | + + + | Preferred Language | Unknown | + + + | Marital Status | Single | + + + | Moravian Affiliation | Unknown | + + + | Race | Unknown | + + + | Ethnic Group | Unknown | + + + Author + + + | Author | [facility] | | | and [place] | + + + | Organization | [facility] | | | and [...] Team Providers + +------+ + | Care Carport Erector Name | Role | Phone | + +------+ + | Renetta Weinstein DO | PCP | | + +------+ + Reason for Visit + + + | Reason | Comments | + + + | Medication | | | Recommendations | | + + + Encounter Details +--------+ + + + + | Date | Type | Department | Care Team | Description | +--------+ + + + + | 10/06/ | Telephone | [facility] | Renetta Weinstein | Medication | | 2019 | | [facility] | DO Mounika [address] | Recommendations | | | | [facility] | [facility], [place] | | | | | [address] [place], | [address] | | | | | [place] [address] | [phone] | | | | | [phone] | | | +--------+ + + + [...]
--- OUTSIDE RECORDS SUMMARY | ~2018-11-25 | XMS | Encounter Summary ---
Demographics + + + | Address | [address] | | | [place] [address] | + + + | Home Phone | | + + + | Preferred Language | Unknown | + + + | Marital Status | Single | + + + | Episcopal Affiliation | Unknown | + + + | Race | Unknown | + + + | Ethnic Group | Unknown | + + + Author + + + | Author | [facility] | | | and [place] | + + + | Organization | [facility] | | | [...] Team Providers + +------+ + | Care Cat Tender Name | Role | Phone | [...] Description | +--------+--------+ + + + | 09/23/ | Refill | [facility] | Renetta Weinstein | Medication Refill | | 2018 | | [facility] | Mounika, DO [address] | | | | | [address] | [facility], [place] | | | | | [address] [place], | [address] | | | | | [place] [address] | [phone] | | | | | [phone] | | | +--------+--------+ + + + [...]
--- OUTSIDE RECORDS SUMMARY | ~2018-11-25 | XMS | Encounter Summary ---
Demographics + + + | Address | [address] | | | [place] [address] | + + + | Home Phone | | + + + | Preferred Language | Unknown | + + + | Marital Status | Single | + + + | Episcopal Affiliation | Unknown | + + + | Race | Unknown | + + + | Ethnic Group | Unknown | + + + Author + + + | Author | [facility] | | | and [place] | + + + | Organization | [facility] | | | and [...] Team Providers + +------+ + | Care Mixer Tender Name | Role | Phone | [...] Description | +--------+--------+ + + + | 09/12/ | Refill | [facility] | Renetta Weinstein | Medication Refill | | 2018 | | [facility] | Mounika, DO [address] | | | | | [facility] [address] | [facility], [place] | | | | | [address] [place], | [address] | | | | | [place] [address] | [phone] | | | | | [phone] | | | +--------+--------+ + + + [...]
--- OUTSIDE RECORDS SUMMARY | ~2018-11-25 | XMS | Encounter Summary ---
Demographics + + + | Address | [address] | | | [place] [address] | + + + | Home Phone | | + + + | Preferred Language | Unknown | + + + | Marital Status | Single | + + + | Baptist Affiliation | Unknown | + + + | Race | Unknown | + + + | Ethnic Group | Unknown | + + + Author + + + | Author | [facility] | | | and [place] | + + + | Organization | [facility] | | [...] Team Providers + +------+ + | Care Food Packer Name | Role | Phone | + [...] | | | [facility] | [facility], [place] | | | | | [address] [place], | [address] | | | | | [place] [address] | [phone] | | | | | [phone] | | | +--------+ + + + [...]
--- OUTSIDE RECORDS SUMMARY | ~2018-11-25 | XMS | Encounter Summary ---
Demographics + + + | Address | [address] | | | [place] [address] | + + + | Home Phone | | + + + | Preferred Language | Unknown | + + + | Marital Status | Single | + + + | Sabianist Affiliation | Unknown | + + + | Race | Unknown | + + + | Ethnic Group | Unknown | + + + Author + + + | Author | [facility] | | | and [place] | + + + | Organization | [facility] | | | [...] Team Providers + +------+ + | Care Novelty Twister Tender Name | Role | Phone | [...] Refill | | 2018 | | [facility] | Mounika, DO [address] | | | | | [address] | [facility], [place] | | | | | [address] [place], | [address] | | | | | [place] [address] | [phone] | | | | | [phone] | | | +--------+--------+ + + + [...]
--- OUTSIDE RECORDS SUMMARY | ~2018-11-25 | XMS | Clinical Summary ---
Demographics + + + | Address | [address] | | | [place] [address] | + + + | Home Phone | | + + + | Preferred Language | Unknown | + + + | Marital Status | Unknown | + + + | Restorationist Affiliation | Unknown | + + + | Race | Unknown | + + + | Ethnic Group | Unknown | + + + Author + + + | Author | [facility] | + + + | Organization | [facility] | + + + | Address | Unknown | + + + | Phone | Unavailable | + + + Support +--------+ +---------+ + | Name | Relationship | Address | Phone | +--------+ +---------+ + | No,One | ECON | Unknown | | +--------+ +---------+ + Care Team Providers + +------+ + | Care Feeder Switchboard Operator Name | Role | Phone | [...] +------+-------+ + | MEDICAID | [place] | [id number] | | | [address] | | | N | | | | [place], [place] | | | [place] | | | | [address] | | | HOUSE WORKER GENERAL | | | | | + +--------+ [...] | Self | [birth year] | Home: | [address] | | | freddy/Sumit | | 1965 | [phone] [place] [address] | | | [place] | | | [phone] | | + +--------+ +--------+ + +"
--- OUTSIDE RECORDS SUMMARY | ~2018-11-25 | XMS | Encounter Summary ---
Demographics + + + | Address | [address] | | | [place] [address] | + + + | Home Phone | | + + + | Preferred Language | Unknown | + + + | Marital Status | Single | + + + | Tenriism Affiliation | Unknown | + + + | Race | Unknown | + + + | Ethnic Group | Unknown | + + + Author + + + | Author | [facility] | | | and [place] | + + + | Organization | [facility] | | [...] Team Providers + +------+ + | Care Roll Forming Machine Set Up Mechanic Name | Role | Phone | + [...] Description | +--------+--------+ + + + | 11/20/ | Refill | [facility] | Renetta Weinstein | Medication Refill | | 2018 | | [facility] | Mounika, DO [address] | | | | | [address] | [facility], [place] | | | | | [address] [place], | [address] | | | | | [place] [address] | [phone] | | | | | [phone] | | | +--------+--------+ + + + [...]
--- OUTSIDE RECORDS SUMMARY | ~2018-11-25 | XMS | Encounter Summary ---
Demographics + + + | Address | [address] | | | [place] [address] | + + + | Home Phone | | + + + | Preferred Language | Unknown | + + + | Marital Status | Single | + + + | Muslim Affiliation | Unknown | + + + | Race | Unknown | + + + | Ethnic Group | Unknown | + + + Author + + + | Author | [facility] | | | and [place] | + + + | Organization | [facility] | | | [...] Team Providers + +------+ + | Care Obstetrician Gynecologist Name | Role | Phone | + [...] | | 2018 | | [facility] | Mounika, DO [address] | | | | | [address] | [facility], [place] | | | | | [address] [place], | [address] | | | | | [place] [address] | [phone] | | | | | [phone] | | | +--------+--------+ + + + [...]
--- OUTSIDE RECORDS SUMMARY | ~2018-11-25 | XMS | Encounter Summary ---
Demographics + + + | Address | [address] | | | [place] [address] | + + + | Home Phone | | + + + | Preferred Language | Unknown | + + + | Marital Status | Single | + + + | Mormonism Affiliation | Unknown | + + + | Race | Unknown | + + + | Ethnic Group | Unknown | + + + Author + + + | Author | [facility] | | | and [place] | + + + | Organization | [facility] | | | [...] Team Providers + +------+ + | Care Small Machine Bindery Operator Name | Role | Phone | [...] + + | 09/11/ | Telephone | [facility] | Renetta Weinstein | Knee Pain | | 2019 | | [facility] | Mounika, DO [address] | | | | | [address] | [place], [place] | | | | | [address] [place], | [address] | | | | | [place] [address] | [phone] | | | | | [phone] | | | +--------+ + + + [...]
--- OUTSIDE RECORDS SUMMARY | ~2018-11-25 | XMS | Encounter Summary ---
Demographics + + + | Address | [address] | | | [place] [address] | + + + | Home Phone [...] + + + | Author | [facility] | | | and [place] | + + + | Organization | [facility] | | | and [...] Team Providers + +------+ + | Care Yarn Rewinder Name | Role | Phone | + [...] | +--------+ + + + + | 11/23/ | Telephone | [facility] | Renetta Weinstein | Medication Question | | 2019 | | [facility] | Mounika, DO [address] | | | | | [address] | [facility], [place] | | | | | [address] [facility], | [address] | | | | | [place] [address] | [phone] | | | | | [phone] | | | +--------+ + + + [...]
--- OUTSIDE RECORDS SUMMARY | ~2018-11-25 | XMS | Encounter Summary ---
Demographics + + + | Address | [address] | | | [place] [address] | + + + | Home Phone [...] Team Providers + +------+ + | Care Composition Mixer Name | Role | Phone | + [...] Description | +--------+--------+ + + + | 10/13/ | Refill | [facility] | Renetta Weinstein | Medication Refill | | 2018 | | [facility] | Mounika, DO [address] | | | | | [address] | [facility], [place] | | | | | [address] [place], | [address] | | | | | [place] [address] | [phone] | | | | | [phone] | | | +--------+--------+ + + + [...]
--- OUTSIDE RECORDS SUMMARY | ~2018-11-25 | XMS | Clinical Summary ---
Demographics + + + | Address | [address] | | | [place] [address] | + + + | Home Phone | | + + + | Preferred Language | Unknown | + + + | Marital Status | Single | + + + | Amish Affiliation | Unknown | + + + | Race | Unknown | + + + | Ethnic Group | Unknown | + + + Author + + + | Author | [facility] | | | and [place] | + + + | Organization | [facility] [...] Team Providers + +------+ + | Care Deck Supervisor Name | Role | Phone | + +------+ + | Renetta Weinstein DO | PP | | + +------+ + Allergies + + + + + + | Active Allergy | Reactions | Severity | Noted | Comments | | | | | Date | | + + + + + + | Pregabalin | Swelling | High | 03/30/20 | | | | | | 18 | | + + + + + + | Penicillins | Nausea And Vomiting | Medium | 10/15/19 | | | | | | 18 | | + + + + + + | Tramadol | Swelling | | 12/21/19 | | | | | | 18 | | + + + + + + Medications + + + +---------+------+------+-------+ | Medication | Sig | Dispensed | Refills | Star | End | Statu | | | | | | t | Date | s | | | | | | Date | | | + + + +---------+------+------+-------+ | Multiple | Take 1 tablet by | | 0 | | | Activ | | Vitamins-Minerals | mouth Daily. | | | | | e | | (MULTIVITAL PO) | | | | | | | + + + +---------+------+------+-------+ | aspirin 81 mg | Take 81 mg by mouth | | 0 | | | Activ | | chewable tablet | Daily. | | | | | e | + + + +---------+------+------+-------+ | Cranberry 500 MG | Take 500 mg by mouth | | 0 | | | Activ | | CAPS | 2 times daily. | | | | | e | + + + +---------+------+------+-------+ | estradiol | take 1 tablet by | 30 | 3 | 10/3 | | Activ | | (ESTRACE) 0.5 mg | mouth once daily | tablet | | 0/20 | | e | | tablet | | | | 18 | | | + + + +---------+------+------+-------+ | omeprazole | take 1 capsule by | 90 | 1 | 12/0 | | Activ | | (PRILOSEC) 40 MG | mouth every morning | capsule | | 7/20 | | e | | capsule | before BREAKFAST | | | 18 | | | + + + +---------+------+------+-------+ | ibuprofen | Take 1 tablet by | 90 | 3 | 01/0 | | Activ | | (ADVIL,MOTRIN) 800 | mouth every 8 hours | tablet | | 420 | | e | | MG tablet | as needed for Pain. | | | 19 | | | + + + +---------+------+------+-------+ | lamoTRIgine | take 1 tablet by | 90 | 1 | 01/0 | | Activ | | (LAMICTAL) 100 mg | mouth once daily | tablet | | 8/20 | | e | | tablet | | | | 19 | | | + + + +---------+------+------+-------+ | | take 1 tablet by | 10 | 3 | 03/1 | | Activ | | medroxyPROGESTERone | mouth ON DAYS 1-10 | tablet | | 1/20 | | e | | (PROVERA) 2.5 mg | OF EVERY MONTH | | | 19 | | | | tablet | | | | | | | + + + +---------+------+------+-------+ | | take 1 tablet by | 112 | 0 | 04/2 | | Activ | | acetaminophen-codein | mouth every 6 hours | tablet | | 6/20 | | e | | e (TYLENOL #3) | if needed for pain | | | 19 | | | | 300-30 mg per tablet | FOR UP TO 28 DAYS | | | | | | + + + +---------+------+------+-------+ | FLUoxetine | take 2 capsules by | 60 | 1 | 05/0 | | Activ | | (PROZAC) 20 mg | mouth once daily | capsule | | 6/20 | | e | | capsule | | | | 19 | | | + + + +---------+------+------+-------+ | | Take 0.5 tablets by | 6 | 0 | 03/2 | 04/2 | Disco | | HYDROcodone-acetamin | mouth Twice daily | tablet | | 2/20 | 6/20 | ntinu | | ophen (NORCO) 10-325 | as needed for Pain. | | | 19 | 19 | ed | | mg per tablet | | | | | | | + + + +---------+------+------+-------+ | | take 1 tablet by | 112 | 0 | 03/2 | 04/2 | Disco | | acetaminophen-codein | mouth every 6 hours | tablet | | / | 01/04 | ntinu | | e (TYLENOL #3) | if needed for pain | | | 19 | 19 | ed | | 300-30 mg per tablet | FOR UP TO 28 DAYS | | | | | | + + + +---------+------+------+-------+ | FLUoxetine | take 2 tablets by | 60 | 0 | 03/2 | 05/0 | Disco | | (PROZAC) 20 mg | mouth once daily | capsule | | / | 20 | ntinu | | capsule | | | | 19 | 19 | ed | + + + +---------+------+------+-------+ Active Problems +---------+ + | Problem | Noted Date | +---------+ + | Anxiety | 11/10/2018 | +---------+ + + + | Last Assessment & Plan: She is having some situational | | anxiety surrounding her brother's cancer diagnosis. She is using | | trazodone when necessary at bedtime. We discussed | | nonpharmacologic options such as blurring or tea or T. Discussed | | yoga, exercise and getting plenty of sleep. | + + + + + | Precordial pain | [...] + + | Last Assessment & Plan: Has upcoming knee replacement surgery | | in February. She is due for refill of her Tylenol No. 3. We | | refilled that today for her. Follow-up with me in February or | | March after knee replacement. | + + + + + | [...] + +---+ | Bipolar 1 disorder, depressed | | + +---+ + + | [...] + + | 11/23/ | Telephone | | Renetta Weinstein | Medication Question | | 2019 | | | DO Mounika | | +--------+ + + + + | 11/20/ | Refill | | Renetta Weinstein | Medication Refill | | 2019 | | | DO Mounika | | +--------+ + + + + | 11/10/ | Office | | Renetta Weinstein | Primary | | 2019 | Visit | | DO Mounika | osteoarthritis of | | | | | | right knee; Anxiety | +--------+ + + + + | 11/03/ | Telephone | | WeinsteinRenetta | Medication Related | | 2018 | | | DO Mounika | | +--------+ + + + + | 10/13/ | Refill | | Js Renetta | Medication Refill | | 2019 | | | DO Mounika | | +--------+ + + + + | 10/09/ | Refill | | Renetta Weinstein | Medication Refill | | 2019 | | | DO Mounika | | +--------+ + + + + | 10/06/ | Office | | Teresa Kingsley, | Primary | | 2019 | Visit | | PREBOARDER | osteoarthritis of | | | | | | right knee | +--------+ + + + + | 10/06/ | Telephone | | Renetta Weinstein | Medication | | 2018 | | | DO Mounika | Recommendations | +--------+ + + + + | 09/25/ | Telephone | | Renetta Weinstein | Medication Question | | 2018 | | | Mounika DO | | +--------+ + + + + | 09/23/ | Refill | | WeinsteinRenetta krause | Medication Refill | | 2018 | | | Mounika DO | | +--------+ + + + + | 09/12/ | Refill | | Renetta Weinstein | Medication Refill | | 2018 | | | Mounika DO | | +--------+ + + + + | 09/11/ | Refill | | Renetta Weinstein | Medication Refill | | 2019 | | | Mounika DO | | +--------+ + + + + | 09/11/ | Telephone | | Renetta Weinstein | Knee Pain | | 2019 | | | MounikaDO gill | | +--------+ + + + + from Last 3 Months Immunizations + + + + | Name | Dates Previously Given | Next Due | + + + + | DTP (PED) | 01/14/1986, 09/14/1970, 1965, | | | | 1965, 1965 | | + + + + | INFLUENZA PF | 04/20/2016 | | | TRIVALENT(PED/ADOL/A | | | | DULT)LEYDI | | | + + + + | MMR, 2 DOSE | 09/29/1993, 09/16/1981 | | | (PED/ADULT) | | | + + + + | POLIOVIRUS,OPV | 09/16/1981 | | | (LIVE) | | | + + + + Family History + + +------+ + | Medical History | Relation | Name | Comments | + + +------+ + | Lung cancer | Brother | | | + + +------+ + | Diabetes [...] Comments | + +------+ + + | Brother | | | | + +------+ + + | Daughter [...] recent travel history available. | + + Last Filed Vital Signs + + + + | Vital Sign | Reading | Time Taken | + + + + | Blood Pressure | 138/79 | 11/10/20181305 PDT | + + + + | Pulse | 80 | 11/10/20186 PDT | + + + + | [...] Height | 157.5 cm (5' 2") | 10/06/20181006 PDT | + + + + | Body Mass Index | 38.67 | 10/06/2018 1007 PDT | + + + + Plan of Treatment + + + + + | Health Maintenance | Due Date | Last Done | Comments | + + + + + | Hepatitis C | | | | | Screening | 4 | | | + + + + + | Urine Drug Screening | | | | | | 0 | | | + + + + + | Cervical Cancer | | | | | Screening (Pap) | 4 | | | + + + + + | Vaccine: | | 01/14/1986, 09/14/1970, | | | Dtap/Tdap/Td (6 - | 6 | 1964, Additional history | | | Tdap) | | exists | | + + + + + | Breast Cancer | | | | | Screening (Ages | 4 | | | | 50-74) | | | | + + [...] Influenza | | 04/20/2016 | | | (Season Ended) | 9 | | | + + + + + | Primary Care | | 11/10/2018, 10/06/2018, | | | Outreach (Moderate | 0 | 07/21/2018, Additional history | | | Risk) | | exists | | + + + + + Results Not on filefrom Last 3 Months Insurance + +--------+ +--------+ +---------+--------+ | Payer | Benefi | Subscriber | Effect | Phone | Address | Type | | | t Plan | ID | sanam | | | | | | / | | Dates | | | | | | Group | | | | | | + +--------+ +--------+ +---------+--------+ | [employer] | [employer] | [id number] | | [phone] | | Medica | | MEDICAID HMO | HEALTH | | [id number] | 1 | | id | | | MDCD | | esent | | | | | | [place] | | | | | | + +--------+ +--------+ +---------+--------+ + +--------+ +--------+ + + | Guarantor Name | Accoun | Relation to | Date | Phone | Billing Address | | | t Type | Patient | of | | | | | | | | | | + +--------+ +--------+ + + | Zoey Duran | Person | Self | [birth year] | [address] | | | al/Fam | | 1965 | [phone] | [place] | | | [place] | | | [address] (Home) | [address] | + +--------+ +--------+ + + Advance Directives Patient has advance care planning documents on file. For more information, please contact:[facility] [place] [address]
--- OUTSIDE RECORDS SUMMARY | ~2018-11-25 | XMS | Encounter Summary ---
Demographics + + + | Address | [address] | | | [place] [address] | + + + | Home Phone | | + + + | Preferred Language | Unknown | + + + | Marital Status | Single | + + + | Congregation Affiliation | Unknown | + + + | Race | Unknown | + + + | Ethnic Group | Unknown | + + + Author + + + | Author | [facility] | | | and [place] | + + + | Organization | [facility] | | | [...] Team Providers + +------+ + | Care Blueberry Grower Name | Role | Phone | + [...] | | | [address] | [facility], [place] | | | | | [address] [facility], | [address] | | | | | [place] [address] | [phone] | | | | | [phone] | | | +--------+ + + + [...]
--- OUTSIDE RECORDS SUMMARY | ~2018-11-25 | XMS | Encounter Summary ---
Demographics + + + | Address | [address] | | | [place] [address] | + + + | Home Phone | | + + + | Preferred Language | Unknown | + + + | Marital Status | Single | + + + | Baptism Affiliation | Unknown | + + + | Race | Unknown | + + + | Ethnic Group | Unknown | + + + Author + + + | Author | [facility] | | | and [place] | + + + | Organization | [facility] | | | [...] Team Providers + +------+ + | Care Assistant Professor Of Spanish Name | Role | Phone | + [...] Refill | | 2018 | | [facility] | Mounika, DO [address] | | | | | [address] | [facility], [place] | | | | | [address] [place], | [address] | | | | | [place] [address] | [phone] | | | | | [phone] | | | +--------+--------+ + + + [...]
--- OUTSIDE RECORDS SUMMARY | ~2018-11-25 | XMS | Encounter Summary ---
Demographics + + + | Address | [address] | | | [place] [address] | + + + | Home Phone | | + + + | Preferred Language | Unknown | + + + | Marital Status | Single | + + + | Protestant Affiliation | Unknown | + + + | Race | Unknown | + + + | Ethnic Group | Unknown | + + + Author + + + | Author | [facility] | | | and [place] | + + + | Organization | [facility] | | | [...] Team Providers + +------+ + | Care Director Of Education And Training Name | Role | Phone | + [...] | | [address] | [facility], [place] | | | | | [address] [facility], | [address] | | | | | [place] [address] | [phone] | | | | | [phone] | | | +--------+ + + + [...]
--- OUTSIDE RECORDS SUMMARY | ~2018-11-25 | XMS | Encounter Summary ---
Demographics + + + | Address | [address] | | | [place] [address] | + + + | Home Phone [...] Team Providers + +------+ + | Care Esl Professor Name | Role | Phone | + [...] | | MED[address] | [place], [place] | right knee; Anxiety | | | | [address] [place], | [address] | | | | | [place] [address] | [phone] | | | | | [phone] | | | +--------+---------+ + + + [...] On Tuesday she will be traveling to [facility] to see him and will be gone [...] affect. Entered by Mikaela Cooley CNA 2, [facility], acting as scribe for Dr. Js DO The documentation recorded by the scribe accurately reflects the service I personally perfo rmed and the decisions made by me. Electronically signed by: Renetta Weinstein DO 11/10/2018 13:23 Note: Part of this report was transcribed using voice recognition software. Every effort wa s made to ensure accuracy. However, inadvertent computerized podiatric medicine professor errors may be pre sent. documented in thi s encounter Plan of Treatment Not on filedocumented as of this encounter Visit Diagnoses + + | Diagnosis | + + | Primary osteoarthritis of right knee Primary localized osteoarthrosis, lower leg | + + | Anxiety Anxiety state, unspecified | + + documented in this encounter"
--- OUTSIDE RECORDS SUMMARY | ~2018-11-25 | XMS | Encounter Summary ---
Demographics + + + | Address | [address] | | | [place] [address] | + + + | Home Phone | | + + + | Preferred Language | Unknown | + + + | Marital Status | Single | + + + | Jain Affiliation | Unknown | + + + | Race | Unknown | + + + | Ethnic Group | Unknown | + + + Author + + + | Author | [facility] | | | and [place] | + + + | Organization | [facility] | | | and [...] Team Providers + +------+ + | Care Transport Aide Name | Role | Phone | + [...] Refill | | 2018 | | [facility] | Mounika, DO [address] | | | | | [address] | [facility], [place] | | | | | [address] [place], | [address] | | | | | [place] [address] | [phone] | | | | | [phone] | | | +--------+--------+ + + + [...]
--- OUTSIDE RECORDS SUMMARY | ~2018-11-25 | XMS | Clinical Summary ---
Demographics + + + | Address | [address] | | | [place] [address] | + + + | Home Phone | | + + + | Preferred Language | Unknown | + + + | Marital Status | Single | + + + | Zoroastrian Affiliation | Unknown | + + + | Race | Unknown | + + + | Ethnic Group | Unknown | + + + Author + + + | Author | [facility] | | | and [place] | + + + | Organization | [facility] | | | [...] Team Providers + +------+ + | Care Analysis Analyst Name | Role | Phone | [...] | | 2019 | Visit | | [facility] | osteoarthritis of | | | | [...] | [employer] | [employer] | [id number] | | [phone] | | Medica | | MEDICAID HMO [...] Person | Self | [birth year] | [address] | | | al/Fam | | 1965 | [phone] | [place] | | | [place] | | | [address] (Home) | [address] | + +--------+ +--------+ + + Advance Directives Patient has advance care planning documents on file. For more information, please contact:[facility] [address]
--- OUTSIDE RECORDS SUMMARY | ~2018-11-25 | XMS | Encounter Summary ---
Demographics + + + | Address | [address] | | | [place] [address] | + + + | Home Phone | | + + + | Preferred Language | Unknown | + + + | Marital Status | Single | + + + | Gnosticism Affiliation | Unknown | + + + | Race | Unknown | + + + | Ethnic Group | Unknown | + + + Author + + + | Author | [facility] | | | and [place] | + + + | Organization | [facility] | | | and [...] Team Providers + +------+ + | Care Human Resources District Manager Name | Role | Phone | + [...] Refill | | 2018 | | [facility] | Mounika, DO [address] | | | | | [address] | [facility], [place] | | | | | [address] [place], | [address] | | | | | [place] [address] | [phone] | | | | | [phone] | | | +--------+--------+ + + + [...]
--- OUTSIDE RECORDS SUMMARY | ~2018-11-25 | XMS | Encounter Summary ---
Demographics + + + | Address | [address] | | | [place] [address] | + + + | Home Phone | | + + + | Preferred Language | Unknown | + + + | Marital Status | Single | + + + | Hinduism Affiliation | Unknown | + + + | Race | Unknown | + + + | Ethnic Group | Unknown | + + + Author + + + | Author | [facility] | | | and [place] | + + + | Organization | [facility] | | | and [...] Team Providers + +------+ + | Care Vessel Builder Name | Role | Phone | + +------+ + | Renetta Weinstein DO | PCP | | + +------+ + Reason for Visit + + + | Reason | Comments | + + + | Medication Related | | + + + Encounter Details +--------+ + + + + | Date | Type | Department | Care Team | Description | +--------+ + + + + | 11/03/ | Telephone | [facility] | Renetta Weinstein | Medication Related | | 2018 | | [facility] | DO Mounika [address] | | | | | [address] | [facility], [place] | | | | | [address] [facility], | [address] | | | | | [place] [address] | [phone] | | | | | [phone] | | | +--------+ + + + [...]
--- OUTSIDE RECORDS SUMMARY | ~2018-11-25 | XMS | Encounter Summary ---
Demographics + + + | Address | [address] | | | [place] [address] | + + + | Home Phone | | + + + | Preferred Language | Unknown | + + + | Marital Status | Single | + + + | Mormon Affiliation | Unknown | + + + [...] Team Providers + +------+ + | Care Milieu Coordinator Name | Role | Phone | [...] | | | MED[facility] [address] | [facility], [place] | | | | | [address] [facility], | [address] | | | | | [place] [address] | [phone] | | | | | [phone] | | | +--------+ + + + [...]
--- OUTSIDE RECORDS SUMMARY | ~2018-11-25 | XMS | Encounter Summary ---
Demographics + + + | Address | [address] | | | [place] [address] | + + + | Home Phone | | + + + | Preferred Language | Unknown | + + + | Marital Status | Single | + + + | Church Affiliation | Unknown | + + + [...] + +------+ + | Care Director Of Guidance In Public [employer] Name | Role | Phone | + [...] Related | | 2018 | | [facility] | DO Mounika [address] | | | | | [address] | [facility], [place] | | | | | [address] [facility], | [address] | | | | | [place] [address] | [phone] | | | | | [phone] | | | +--------+ + + + [...]
--- OUTSIDE RECORDS SUMMARY | ~2018-11-25 | XMS | Clinical Summary ---
Demographics + + + | Address | [address] | | | [place] [address] | + + + | Home Phone | | + + + | Preferred Language | Unknown | + + + | Marital Status | Unknown | + + + | Baptism Affiliation | Unknown | + + + | Race | Unknown | + + + | Ethnic Group | Unknown | + + + Author + + + | Author | [facility] | + + + | Organization | [facility] | + + + | Address | Unknown | + + + | Phone | Unavailable | + + + Support +--------+ +---------+ + | Name | Relationship | Address | Phone | +--------+ +---------+ + | No,One | ECON | Unknown | | +--------+ +---------+ + Care Team Providers + +------+ + | Care Vegetable Grader Name | Role | Phone | + [...] +------+-------+ + | MEDICAID | EASTER | [id number] | | | [address] | | | N | | | | [place], [place] | | | [place] | | | | [address] | | | ORGAN INSTALLER | | | | | + +--------+ [...] | Self | [birth year] Home: | [address] | | | freddy/Sumit | | [phone] | [phone] | [place] [address] | | | [place] | | | [phone] | | + +--------+ +--------+ + +"
--- OUTSIDE RECORDS SUMMARY | ~2018-11-25 | XMS | Encounter Summary ---
Demographics + + + | Address | [address] | | | [place] [address] | + + + | Home Phone | | + + + | Preferred Language | Unknown | + + + | Marital Status | Single | + + + | Jewish Affiliation | Unknown | + + + | Race | Unknown | + + + | Ethnic Group | Unknown | + + + Author + + + | Author | [facility] | | | and [place] | + + + | Organization | [facility] | | | [...] Team Providers + +------+ + | Care Factory Engineer Name | Role | Phone | + [...] | | | [facility] [facility] | [facility], [place] | | | | | [address] [place], | [address] | | | | | [place] [address] | [phone] | | | | | [phone] | | | +--------+--------+ + + + [...]
--- OUTSIDE RECORDS SUMMARY | ~2018-11-25 | XMS | Encounter Summary ---
Demographics + + + | Address | [address] | | | [place] [address] | + + + | Home Phone | | + + + | Preferred Language | Unknown | + + + | Marital Status | Single | + + + | Yarsanism Affiliation | Unknown | + + + | Race | Unknown | + + + | Ethnic Group | Unknown | + + + Author + + + | Author | [facility] | | | and [place] | + + + | Organization | [facility] | | | [...] Team Providers + +------+ + | Care Institution Director Name | Role | Phone | [...] Knee Pain | | 2019 | | [facility] | Mounika, DO [address] | | | | | [address] | [facility], [place] | | | | | [address] [place], | [address] | | | | | [place] [address] | [phone] | | | | | [phone] | | | +--------+ + + + [...]
[~2018-11-25 17:04] MED LIST changes: +XANAX0.5 MG PO
--- OUTSIDE RECORDS SUMMARY | 2018-11-25 17:08 | XMS ---
PreManage Notification: COLLETTE MILLAN Security Sheetmetal Patternmaker Events No recent Security Events currently on file CRITERIA MET - Group Notification - PDMP CARE PROVIDERS TALI FRAZIER Physician Limousine Rental Clerk 09/29/2018-Current PHONE: [phone] CALEB VALENTINE GRACE [facility] Current PHONE: Unknown Silvino Heart MD PHONE: Unknown DR SEGURA Primary Care 08/11/2016-Current PHONE: [phone] Mandeep has no Care Guidelines for this patient. Laura VISIT COUNT (12 MO.) 1 [facility] 2 [facility] TOTAL 3 NOTE: Visits indicate total known visits. ED/UCC VISIT TRACKING (12 MO.) 11/25/2018 17:05 [facility] [place] TYPE: Emergency COMPLAINT: - RIGHT KNEE INJURY 09/28/2018 16:34 [facility] [place] TYPE: Emergency COMPLAINT: - CHEST PAIN DIAGNOSES: - Personal history of urinary calculi - Other chest pain - Allergy status to narcotic agent status - Old myocardial infarction - termination clerk (current) use of aspirin - Essential (primary) hypertension - Allergy status to other drugs, medicaments and biological substances status - Other long goods drier (current) drug therapy - Chest pain, unspecified 01/02/2018 21:25 [facility] [place] TYPE: Emergency COMPLAINT: - FELL L HAND ELBOW AND R KNEE INJURY INPATIENT VISIT TRACKING (12 MO.) No inpatient visits to display in this time frame [email or web address]
== END 2018-11-25 18:38 | disposition home or self-care (01) ==
LOC: ED 17:04
DX: S89.91XA Unspecified injury of right lower leg, initial encounter (principal); I10 Essential (primary) hypertension; I25.2 Old myocardial infarction; Z87.442 Personal history of urinary calculi; Z88.6 Allergy status to analgesic agent; Z88.8 Allergy status to other drugs, medicaments and biological substances; Z79.82 Long term (current) use of aspirin; Z79.899 Other long term (current) drug therapy; X50.0XXA Overexertion from strenuous movement or load, initial encounter
CPT/HCPCS: 73560; 96372; 99283-25; J1885

== ENCOUNTER 2019-09-15 10:01 | Emergency (ER) | payer OTHER ==
[~2019-09-15] VITALS: Ht 157.5 cm; Wt 100.0 kg
[~2019-09-15 10:01] MED LIST changes: +OMEPRAZOLE40 MG PO
== END 2019-09-15 11:44 | disposition home or self-care (01) ==
LOC: ED 10:01
DX: S80.02XA Contusion of left knee, initial encounter (principal); M25.462 Effusion, left knee; I10 Essential (primary) hypertension; I25.2 Old myocardial infarction; Z79.899 Other long term (current) drug therapy; X58.XXXA Exposure to other specified factors, initial encounter
CPT/HCPCS: 73560; 96372; 99283-25; J1885

== ENCOUNTER 2020-03-31 00:16 | Emergency (ER) | payer OTHER ==
[~2020-03-31] VITALS: Ht 157.5 cm; Wt 113.1 kg
--- OUTSIDE RECORDS SUMMARY | 2020-03-31 00:18 | XMS ---
PreManage Notification: COLLETTE MILLAN Security Merchant Banker Events No recent Security Events currently on file CRITERIA MET - Group Notification - PDMP CARE PROVIDERS TALI FRAZIER Physician Grants And Contracts Assistant 09/29/2018-Current PHONE: [phone] [facility] Current PHONE: [phone] Mandeep has no Care Guidelines for this patient. EJose VISIT COUNT (12 MO.) 1 [facility] - Angela Guallpa [address] Anthony Jose Enrique TOTAL 3 NOTE: Visits indicate total known visits. ED/UCC VISIT TRACKING (12 MO.) 03/31/2020 00:16 [facility] [place] TYPE: Emergency COMPLAINT: - POSS POST OP INFECTION 03/26/2020 14:38 Gus VASQUEZ [place] TYPE: Urgent Care DIAGNOSES: - Other chronic pain - Other tear of medial meniscus, current injury, left knee, ini - Follow-up - Presence of right artificial knee joint - Pain in right shoulder - Bipolar disorder, unspecified - Nondisplaced osteochondral fracture of left patella, initial - Other acute postprocedural pain 01/31/2020 10:45 Gus Tabitha BobbyJose Enrique VASQUEZ [place] TYPE: Urgent Care DIAGNOSES: - Unilateral primary osteoarthritis, right knee - Encounter for other preprocedural examination 01/09/2020 10:31 Gus Tabitha BobbyJose Enrique [facility] [place] TYPE: Urgent Care DIAGNOSES: - Unilateral primary osteoarthritis, right knee - Pain in left hand - Pain in unspecified joint - Radiculopathy, cervical region 09/15/2019 10:02 [facility] [place] TYPE: Emergency COMPLAINT: - LEFT KNEE PAIN DIAGNOSES: - Essential (primary) hypertension - Contusion of left knee, initial encounter - Other [place] [facility] ([facility] drug therapy - Effusion, left knee - Pain in left knee - Old myocardial infarction - Exposure to other specified factors, initial encounter 08/21/2019 11:05 [facility]: Emergency DIAGNOSES: 0. BODY ACHES VOMITING SKY 0. Vomiting, unspecified 0. Headache 0. Diarrhea, unspecified 1. Encounter for general adult medical examination without abnor INPATIENT VISIT TRACKING (12 MO.) 02/12/2020 06:25 Gus VASQUEZ [place] TYPE: Surgery DIAGNOSES: - Presence of right artificial knee joint - Other meniscus derangements, posterior horn of medial meniscu - Unspecified osteoarthritis, unspecified site - see surgeons notes - Calculus of kidney - Unilateral primary osteoarthritis, right knee - Pain in right knee - Anxiety disorder, unspecified - Pain in left hip - Bipolar disorder, unspecified [id number]
[2020-03-31] MEDS ORDERED: ASPIR-TRIN325 MG PO (00:33)
== END 2020-03-31 02:15 | disposition home or self-care (01) ==
LOC: ED 00:16
DX: G89.18 Other acute postprocedural pain (principal); M79.604 Pain in right leg; I10 Essential (primary) hypertension; I25.2 Old myocardial infarction; Z88.5 Allergy status to narcotic agent; Z88.8 Allergy status to other drugs, medicaments and biological substances; Z79.899 Other long term (current) drug therapy; Z79.82 Long term (current) use of aspirin
CPT/HCPCS: 80053; 85025; 93971; 99284-25

== ENCOUNTER 2021-07-26 23:24 | Emergency (ER) | payer OTHER ==
[~2021-07-26] VITALS: Ht 157.5 cm; Wt 102.0 kg
[~2021-07-26 23:24] MED LIST changes: +ASPIR-TRIN325 MG PO
--- OUTSIDE RECORDS SUMMARY | 2021-07-26 23:26 | XMS ---
PreManage Notification: COLLETTE MILLAN Security Benefits Clerk Events No recent Security Events currently on file CRITERIA MET - PDMP - Group Notification CARE PROVIDERS TAYLA PHAM Nurse Practitioner: Family 03/31/2020-Current PHONE: [phone] TALI FRAZIER Physician Construction Analyst 09/29/2018-Current PHONE: [phone] SERGE [facility] Current PHONE: Unknown Mandeep has no Care Guidelines for this patient. E.D. VISIT COUNT (12 MO.) 1 CHUCK Torres TOTAL 1 NOTE: Visits indicate total known visits. ED/UCC VISIT TRACKING (12 MO.) 07/26/2021 23:24 [facility] [place] TYPE: Emergency COMPLAINT: - FLU SYMPTOMS INPATIENT VISIT TRACKING (12 MO.) No inpatient visits to display in this time frame [id number]
[2021-07-26] MEDS ORDERED: ADULT ASPIRIN R81 MG PO (23:39)
[2021-07-27] MEDS ORDERED: GUAIFENESIN-CO118 ML PO (00:29)
== END 2021-07-27 00:52 | disposition home or self-care (01) ==
LOC: ED 23:24
DX: U07.1 COVID-19 (principal); I10 Essential (primary) hypertension; I25.2 Old myocardial infarction; Z88.5 Allergy status to narcotic agent; Z88.8 Allergy status to other drugs, medicaments and biological substances; Z79.899 Other long term (current) drug therapy; Z79.82 Long term (current) use of aspirin
CPT/HCPCS: 94664; 96372; 99284; J1885; U0003

== ENCOUNTER 2021-07-29 17:25 | Emergency (ER) | payer OTHER ==
[~2021-07-29] VITALS: Ht 157.5 cm; Wt 101.6 kg
[~2021-07-29 17:25] MED LIST changes: +ADULT ASPIRIN R81 MG PO; +GUAIFENESIN-CO118 ML PO
--- OUTSIDE RECORDS SUMMARY | 2021-07-29 17:28 | XMS ---
PreManage Notification: COLLETTE MILLAN Security Speedometer Mechanic Events No recent Security Events currently on file CRITERIA MET - [facility] - 2 Visits in 30 Days - [facility] TAYLA PHAM Nurse Practitioner: 03/31/2020-Current PHONE: [phone] TALI FRAZIER Physician Data Communications Analyst 09/29/2018-Current [facility]: [phone] [facility] PHONE: Unknown Mandeep has no Care Guidelines for this patient. E.D. VISIT COUNT (12 MO.) 2 CHUCK Torres TOTAL 2 NOTE: Visits indicate total known visits. ED/UCC VISIT TRACKING (12 MO.) 07/29/2021 17:26 [facility] [place] TYPE: Emergency COMPLAINT: - LT SIDED FLANK PAIN 07/26/2021 23:24 [facility] [place] TYPE: Emergency COMPLAINT: - FLU SYMPTOMS DIAGNOSES: - Other detention (current) drug therapy - FDC (current) use of aspirin - Allergy status to other drugs, medicaments and biological substances - COVID-19 - Allergy status to narcotic agent - Old myocardial infarction - Headache, unspecified - Essential (primary) hypertension INPATIENT VISIT TRACKING (12 MO.) No inpatient visits to display in this time frame [id number]
[2021-07-29] MEDS ORDERED: HYDROCODON-ACE1 EA10 PO (19:56)
[2021-07-29] MEDS ORDERED: ONDANSETRON ODT8 MG PO (19:56)
[2021-07-29] MEDS ORDERED: FLOMAX0.4 MG PO (19:56)
== END 2021-07-29 20:24 | disposition home or self-care (01) ==
LOC: ED 17:25
DX: R10.30 Lower abdominal pain, unspecified (principal); I10 Essential (primary) hypertension; I25.2 Old myocardial infarction; Z88.5 Allergy status to narcotic agent; Z88.8 Allergy status to other drugs, medicaments and biological substances; Z79.899 Other long term (current) drug therapy; Z79.82 Long term (current) use of aspirin
CPT/HCPCS: 74177; 80048; 81001; 85025; 96375; 99284-25; A9270; J1885; J2405; J7030

== ENCOUNTER 2021-10-11 17:15 | Emergency (ER) | payer OTHER ==
[~2021-10-11] VITALS: Ht 157.5 cm; Wt 101.6 kg
[~2021-10-11 17:15] MED LIST changes: +HYDROCODON-ACE1 EA10 PO; +ONDANSETRON ODT8 MG PO
--- OUTSIDE RECORDS SUMMARY | 2021-10-11 17:18 | XMS ---
PreManage Notification: COLLETTE MILLAN Security Rail Director Events No recent Security Events currently on file CRITERIA MET - PDMP - Group Notification CARE PROVIDERS TAYLA PHAM Nurse Practitioner: Family 03/31/2020-Current PHONE: [phone] TALI FRAZIER Physician Wrinkle Chaser 09/29/2018-Current PHONE: [phone] S[facility] Current PHONE: Unknown Mandeep has no Care Guidelines for this patient. E.D. VISIT COUNT (12 MO.) 3 CHUCK Torres TOTAL 3 NOTE: Visits indicate total known visits. ED/UCC VISIT TRACKING (12 MO.) 10/11/2021 17:16 [facility] [place] TYPE: Emergency COMPLAINT: - LT SHOULDER,BICEP PAIN 07/29/2021 17:26 [facility] [place] TYPE: Emergency COMPLAINT: - LT SIDED FLANK PAIN DIAGNOSES: - Lower abdominal pain, unspecified - Unspecified abdominal pain - Essential (primary) hypertension - Other fci (current) drug therapy - Allergy status to other drugs, medicaments and biological substances - Allergy status to narcotic agent - Old myocardial infarction - FCI (current) use of aspirin 07/26/2021 23:24 [facility] [place] TYPE: Emergency COMPLAINT: - FLU SYMPTOMS DIAGNOSES: - Other fci (current) drug therapy - wedger (current) use of aspirin - Allergy status to other drugs, medicaments and biological substances - COVID-19 - Allergy status to narcotic agent - Old myocardial infarction - Headache, unspecified - Essential (primary) hypertension INPATIENT VISIT TRACKING (12 MO.) No inpatient visits to display in this time frame [id number]
== END 2021-10-11 19:07 | disposition home or self-care (01) ==
LOC: ED 17:15
DX: S29.012A Strain of muscle and tendon of back wall of thorax, initial encounter (principal); I10 Essential (primary) hypertension; I25.2 Old myocardial infarction; Z88.8 Allergy status to other drugs, medicaments and biological substances; Z88.5 Allergy status to narcotic agent; Z79.899 Other long term (current) drug therapy; Z79.82 Long term (current) use of aspirin; W18.30XA Fall on same level, unspecified, initial encounter
CPT/HCPCS: 71046; 73010; 99283-25; A9270

== ENCOUNTER 2022-06-25 19:17 | Emergency (ER) | payer OTHER ==
[~2022-06-25] VITALS: Ht 157.5 cm; Wt 102.0 kg
--- OUTSIDE RECORDS SUMMARY | 2022-06-25 19:22 | XMS ---
PreManage Notification: COLLETTE MILLAN Security Animal Hospital Clerk Events No recent Security Events currently on file CRITERIA MET - PDMP - Group Notification CARE PROVIDERS TAYLA PHAM Nurse Practitioner: Family 03/31/2020-Current PHONE: [phone] TALI FRAZIER Physician Aviation Safety Technician 09/29/2018-Current PHONE: [phone] SERGE [facility] Current PHONE: Unknown Mandeep has no Care Guidelines for this patient. E.D. VISIT COUNT (12 MO.) 4 CHUCK Torres TOTAL 4 NOTE: Visits indicate total known visits. ED/UCC VISIT TRACKING (12 MO.) 06/25/2022 19:20 [facility] [place] TYPE: Emergency COMPLAINT: - N/V COUGH FEVER 10/11/2021 17:16 [facility] [place] TYPE: Emergency COMPLAINT: - LT SHOULDER,BICEP PAIN DIAGNOSES: - Allergy status to other drugs, medicaments and biological substances - Pain in left shoulder - Essential (primary) hypertension - Old myocardial infarction - Strain of muscle and tendon of back wall of thorax, initial encounter - Allergy status to narcotic agent - Other fpc (current) drug therapy - Fall on same level, unspecified, initial encounter - FDC (current) use of aspirin 07/29/2021 17:26 [facility] [place] TYPE: Emergency COMPLAINT: - LT SIDED FLANK PAIN DIAGNOSES: - 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 drier operator (current) use of aspirin - Allergy status to narcotic agent - Other watermelon harvesting supervisor (current) drug therapy - Unspecified abdominal pain - Old myocardial infarction - Allergy status to other drugs, medicaments and biological substances - Essential (primary) hypertension - Lower abdominal pain, unspecified 07/26/2021 23:24 [facility] [place] TYPE: Emergency COMPLAINT: - FLU SYMPTOMS DIAGNOSES: - Essential (primary) hypertension - Old myocardial infarction - COVID-19 - buttermilk drier operator (current) use of aspirin - Headache, unspecified - Allergy status to narcotic agent - Allergy status to other drugs, medicaments and biological substances - Other watermelon harvesting supervisor (current) drug therapy INPATIENT VISIT TRACKING (12 MO.) No inpatient visits to display in this time frame [id number]
[2022-06-25] MEDS ORDERED: ONDANSETRON ODT8 MG PO (21:33)
[2022-06-25] MEDS ORDERED: HYDROCODON-ACE1 EA10 PO (21:33)
== END 2022-06-25 22:13 | disposition home or self-care (01) ==
LOC: ED 19:17
DX: K80.50 Calculus of bile duct without cholangitis or cholecystitis without obstruction (principal); N20.0 Calculus of kidney; K42.9 Umbilical hernia without obstruction or gangrene; I10 Essential (primary) hypertension; I25.2 Old myocardial infarction; Z87.442 Personal history of urinary calculi; Z88.8 Allergy status to other drugs, medicaments and biological substances; Z79.899 Other long term (current) drug therapy; Z79.82 Long term (current) use of aspirin; Z20.822 Contact with and (suspected) exposure to COVID-19
CPT/HCPCS: 36415; 74176; 80053; 81003; 83690; 85025; 87502; 96374; 96375; 99284-25; A9270; J2270; J2405; J7030; U0003

== ENCOUNTER 2022-10-21 15:32 | Emergency (ER) | payer OTHER ==
[~2022-10-21] VITALS: Ht 157.5 cm; Wt 102.0 kg
--- OUTSIDE RECORDS SUMMARY | 2022-10-21 15:34 | XMS ---
PreManage Notification: COLLETTE MILLAN Security Copping Machine Operator Events No recent Security Events currently on file CRITERIA MET - PDMP - Group Notification CARE PROVIDERS -Sarbjit DMD Dentist: Entry Manager Current PHONE: [phone] TAYLA PHAM Nurse Practitioner: Family 03/31/2020-Current PHONE: [phone] TALI FRAZIER Physician Insurance Agency Sales Manager 09/29/2018-Current PHONE: [phone] [facility] Current PHONE: Unknown Mandeep has no Care Guidelines for this patient. Laura VISIT COUNT (12 MO.) 2 CHUCK Torres TOTAL 2 NOTE: Visits indicate total known visits. ED/UCC VISIT TRACKING (12 MO.) 10/21/2022 15:32 [facility] [place] TYPE: Emergency COMPLAINT: - VOMITING 06/25/2022 19:[address] [facility] [address] [place] TYPE: Emergency COMPLAINT: - N/V COUGH FEVER DIAGNOSES: - Allergy status to other drugs, medicaments and biological substances - Calculus of bile duct without cholangitis or cholecystitis without obstruction - Personal history of urinary calculi - Calculus of kidney - Essential (primary) hypertension - Umbilical hernia without obstruction or gangrene - Other [facility] (current) drug therapy - Contact with and (suspected) exposure to COVID-19 - Unspecified abdominal pain - correction (current) use of aspirin - Old myocardial infarction INPATIENT VISIT TRACKING (12 MO.) No inpatient visits to display in this time frame [id number]
[2022-10-21] MEDS ORDERED: CELECOXIB200 MG PO (15:43)
--- NOTE | 2022-10-21 22:12 | EKG ---
[facility] [address] [place] [address] Signed Sinus bradycardia Possible Lateral infarct , age undetermined Cannot rule out Inferior infarct , age undetermined Abnormal ECG When compared with ECG of 28-SEP-2018 16:47, No significant change was found Confirmed by Elidia Mackenzie MD () on 10/21/2022 10:11:49 PM Electronically Signed By: ELIDIA MACKENZIE MD 10/21/222211 PATIENT NAME: COLLETTE MILLAN Electrocardiogram DATE OF : 63 PHYSICIAN: ELIDIA MACKENZIE MD REPORT #: [id number] REPORT IS CONFIDENTIAL AND NOT TO BE RELEASED WITHOUT AUTHORIZATION
== END 2022-10-21 19:00 | disposition home or self-care (01) ==
LOC: ED 15:32
DX: K29.00 Acute gastritis without bleeding (principal); I10 Essential (primary) hypertension; I25.2 Old myocardial infarction; Z88.5 Allergy status to narcotic agent; Z88.8 Allergy status to other drugs, medicaments and biological substances; Z88.0 Allergy status to penicillin; Z79.899 Other long term (current) drug therapy; Z79.82 Long term (current) use of aspirin; Z20.822 Contact with and (suspected) exposure to COVID-19
CPT/HCPCS: 36415; 71045; 80048; 80053; 83690; 84484; 85025; 87502; 93005; 93010; 99284-25; A9270; C9803; U0003

== ENCOUNTER 2024-03-30 16:34 | Emergency (ER) | payer OTHER ==
[~2024-03-30] VITALS: Ht 157.5 cm; Wt 89.3 kg
[~2024-03-30 16:34] MED LIST changes: +CELECOXIB200 MG PO
--- OUTSIDE RECORDS SUMMARY | 2024-03-30 16:40 | XMS ---
PreManage Notification: COLLETTE MILLAN Security Management Analyst Events No recent Security Events currently on file CRITERIA MET - Group Notification CARE PROVIDERS TAYLA PHAM Nurse Practitioner: Family 03/31/2020-Current PHONE: [phone] TALI FRAZIER Physician Legal Project Manager 09/29/2018-Current PHONE: [phone] -Sarbjit DMD Dentist: Grid Casting Machine Operator Helper Current PHONE: [phone] KIMBERLY MAGANA [facility]/[place]: [facility] MEDICAL PHONE: [phone] SERGE [facility] Current PHONE: Unknown Mandeep has no Care Guidelines for this patient. EJose VISIT COUNT (12 MO.) 1 CHUCK Jenkins [facility] TOTAL 2 NOTE: Visits indicate total known visits. ED/UCC VISIT TRACKING (12 MO.) 03/30/2024 16:34 [facility] [place] TYPE: Emergency COMPLAINT: - SHOULDER INJURY 10/07/2023 17:44 [facility] Mina [place] TYPE: Emergency DIAGNOSES: - Hypokalemia - Tubulo-interstitial nephritis, not specified as acute or chronic - Multiple Complaints INPATIENT VISIT TRACKING (12 MO.) No inpatient visits to display in this time frame [id number]
[2024-03-30] MEDS ORDERED: ENDOCET 5-3251 EACH PO (18:19)
[2024-03-30] MEDS ORDERED: OXYCODONE/APAP 5/325 TAB PO ONE (18:30)
[2024-03-30 18:33] VITALS: BP 168/68
== END 2024-03-30 18:36 | disposition home or self-care (01) ==
LOC: ED 16:34
DX: M25.512 Pain in left shoulder (principal); I10 Essential (primary) hypertension; I25.2 Old myocardial infarction; W20.8XXA Other cause of strike by thrown, projected or falling object, initial encounter; Z88.5 Allergy status to narcotic agent; Z88.0 Allergy status to penicillin; Z79.899 Other long term (current) drug therapy; Z79.82 Long term (current) use of aspirin
CPT/HCPCS: 73030; 99283

== ENCOUNTER 2024-05-28 15:18 | Emergency (ER) | payer OTHER ==
[~2024-05-28] VITALS: Ht 157.5 cm; Wt 89.5 kg
[~2024-05-28 15:18] MED LIST changes: +ENDOCET 5-3251 EACH PO
--- OUTSIDE RECORDS SUMMARY | 2024-05-28 15:25 | XMS ---
PreManage Notification: COLLETTE MILLAN Security Metal Hanging Helper Events No recent Security Events currently on file CRITERIA MET - Group Notification CARE PROVIDERS TAYLA PHAM Nurse Practitioner: Family 03/31/2020-Current PHONE: [phone] TALI FRAZIER Physician Soda Column Operator 09/29/2018-Current PHONE: [phone] -Sarbjit DMD Dentist: Medical Representative Current PHONE: [phone] KIMBERLY MAGANA [facility]/[place]: [facility] MEDICAL PHONE: [phone] [facility] Current PHONE: Unknown Mandeep has no Care Guidelines for this patient. EJose VISIT COUNT (12 MO.) 2 CHUCK Jenkins [facility] 1 Demetriacy Eddie TOTAL 4 NOTE: Visits indicate total known visits. ED/UCC VISIT TRACKING (12 MO.) 05/28/2024 15:19 [facility] [place] TYPE: Emergency COMPLAINT: - HEADACHE 04/14/2024 16:02 [facility] [place] TYPE: Emergency DIAGNOSES: - Irritant contact dermatitis due to cosmetics - ALLERGIC REACTION 03/30/2024 16:34 [facility]ler [place] TYPE: Emergency COMPLAINT: - SHOULDER INJURY DIAGNOSES: - Allergy status to narcotic agent - Allergy status to penicillin - Essential (primary) hypertension - director long term care (current) use of aspirin - Old myocardial infarction - Other cause of strike by thrown, projected or falling object, initial encounter - Other [place] [facility] (current[facility] drug therapy - Pain in left shoulder 10/07/2023 17:44 Dov Mina [place] TYPE: Emergency DIAGNOSES: - Hypokalemia - Tubulo-interstitial nephritis, not specified as acute or chronic - Multiple Complaints INPATIENT VISIT TRACKING (12 MO.) No inpatient visits to display in this time frame [id number]
[2024-05-28] MEDS ORDERED: HYDROCODONE/ACETA 5/325 TAB PO ONE (16:30)
[2024-05-28] MEDS ORDERED: ALTACE2.5 MG (18:09)
[2024-05-28] MEDS ORDERED: HYDROCODON-ACE1 EA10 PO (18:17)
[2024-05-28 18:21] VITALS: BP 187/97
== END 2024-05-28 18:24 | disposition home or self-care (01) ==
LOC: ED 15:18
DX: R51.9 Headache, unspecified (principal); I10 Essential (primary) hypertension; F31.9 Bipolar disorder, unspecified; Z88.5 Allergy status to narcotic agent; Z88.8 Allergy status to other drugs, medicaments and biological substances; Z88.0 Allergy status to penicillin; Z79.899 Other long term (current) drug therapy; Z79.82 Long term (current) use of aspirin
CPT/HCPCS: 70450

== ENCOUNTER 2024-05-31 17:10 | Emergency (ER) | payer OTHER ==
[~2024-05-31] VITALS: Ht 157.5 cm; Wt 88.8 kg
[~2024-05-31 17:10] MED LIST changes: +ALTACE2.5 MG
--- OUTSIDE RECORDS SUMMARY | 2024-05-31 17:12 | XMS ---
PreManage Notification: COLLETTE MILLAN Security Assistant Center Manager Events No recent Security Events currently on file CRITERIA MET - Group Notification - [facility] - 2 Visits in 30 Days CARE PROVIDERS TAYLA PHAM Nurse Practitioner: Family 03/31/2020-Current PHONE: [phone] TALI FRAZIER Physician Plant Technician/Control Room Operator 09/29/2018-Current PHONE: [phone] -Sarbjit DMD Dentist: Teller Head Current PHONE: [phone] [facility]: [facility] PHONE: [phone] [facility] Current PHONE: Unknown Mandeep has no Care Guidelines for this patient. Laura VISIT COUNT (12 MO.) 3 CHUCK Jenkins [facility] 1 Dov Morgan TOTAL 5 NOTE: Visits indicate total known visits. ED/UCC VISIT TRACKING (12 MO.) 05/31/2024 17:11 [facility] [place] TYPE: Emergency COMPLAINT: - JAW PAIN 05/28/2024 15:19 [facility] [place] TYPE: Emergency COMPLAINT: - HEADACHE DIAGNOSES: - Allergy status to narcotic agent - Allergy status to other drugs, medicaments and biological substances - Allergy status to penicillin - Bipolar disorder, unspecified - Essential (primary) hypertension - Headache, unspecified - intermediate frame tender (current) use of aspirin - Other exterminator (current) drug therapy 04/14/2024 16:[address] [facility] [place] TYPE: Emergency DIAGNOSES: - Irritant contact dermatitis due to cosmetics - ALLERGIC REACTION 03/30/2024 16:34 [facility] Cutler [place] TYPE: Emergency COMPLAINT: - SHOULDER INJURY DIAGNOSES: - Allergy status to narcotic agent - Allergy status to penicillin - Essential (primary) hypertension - retirement (current) use of aspirin - Old myocardial infarction - Other cause of strike by thrown, projected or falling object, initial encounter - Other exterminator (current) drug therapy - Pain in left shoulder 10/07/2023 17:44 Dov Mina [place] TYPE: Emergency DIAGNOSES: - Hypokalemia - Tubulo-interstitial nephritis, not specified as acute or chronic - Multiple Complaints INPATIENT VISIT TRACKING (12 MO.) No inpatient visits to display in this time frame [id number]
[2024-05-31] MEDS ORDERED: diphenhydrAMINE HCL 50 MG/ML VIAL IV ONE (18:15)
[2024-05-31] MEDS ORDERED: METOCLOPRAMIDE HCL 10 MG/2 ML SDV IV ONE (18:15)
[2024-05-31] MEDS ORDERED: KETOROLAC TROMETHAMINE 30 MG/ML VIAL IV ONE (18:15)
[2024-05-31] MEDS ORDERED: SODIUM CHLORIDE 0.9% 1,000 ML IV PRN (18:15)
[2024-05-31] MEDS ORDERED: KETOROLAC TROME10 MG PO (19:10)
[2024-05-31] MEDS ORDERED: HYDROCODON-ACE1 EA10 PO (19:10)
[2024-05-31 19:15] VITALS: BP 155/72
== END 2024-05-31 19:15 | disposition home or self-care (01) ==
LOC: ED 17:10
DX: R51.9 Headache, unspecified (principal); M26.621 Arthralgia of right temporomandibular joint; I10 Essential (primary) hypertension; Z88.8 Allergy status to other drugs, medicaments and biological substances; Z88.5 Allergy status to narcotic agent; Z88.0 Allergy status to penicillin; Z79.899 Other long term (current) drug therapy; Z79.82 Long term (current) use of aspirin
CPT/HCPCS: 96374; 96375; 99283-25; J1200; J1885; J2765; J7030

== ENCOUNTER 2024-09-09 15:00 | Emergency (ER) | payer OTHER ==
[~2024-09-09] VITALS: Ht 157.5 cm; Wt 96.2 kg
--- OUTSIDE RECORDS SUMMARY | 2024-09-09 15:07 | XMS ---
PreManage Notification: COLLETTE MILLAN Security Clay Roaster Events No recent Security Events currently on file CRITERIA MET - Group Notification CARE PROVIDERS TAYLA PHAM Nurse Practitioner: Family 03/31/2020-Current PHONE: [phone] TALI FRAZIER Physician Direct Care Worker 09/29/2018-Current PHONE: Unknown -, [facility] Dentist: Cullet Washer Marta Alejandroon PHONE: [phone] KIMBERLY MAGANA [facility]: [facility] PHONE: [phone] [facility] Current PHONE: Unknown Mandeep has no Care Guidelines for this patient. EJose VISIT COUNT (12 MO.) 4 CHUCK Jenkins [facility] 1 Dov Morgan TOTAL 6 NOTE: Visits indicate total known visits. ED/UCC VISIT TRACKING (12 MO.) 09/09/2024 15:01 [facility] [place] TYPE: Emergency COMPLAINT: - BLOOD PRESSURE PROBLEMS 05/31/2024 17:11 CHUCK Lopezbetito RosalesJose Enrique [facility] [place] TYPE: Emergency COMPLAINT: - JAW PAIN DIAGNOSES: - Allergy status to narcotic agent - Allergy status to other drugs, medicaments and biological substances - Allergy status to penicillin - Arthralgia of right temporomandibular joint - Essential (primary) hypertension - Headache, unspecified - Jaw pain - correction (current) use of aspirin - Other director long term care (current) drug therapy 05/28/2024 15:19 [facility] Cutler [place] TYPE: Emergency COMPLAINT: - HEADACHE DIAGNOSES: - Allergy status to narcotic agent - Allergy status to other drugs, medicaments and biological substances - Allergy status to penicillin - Bipolar disorder, unspecified - Essential (primary) hypertension - Headache, unspecified - director long term care (current) use of aspirin - Other half-way (current) drug therapy 04/14/2024 16:02 [facility] [place] TYPE: Emergency DIAGNOSES: - [...] or falling object, initial encounter - Other half-way (current) drug therapy - Pain in left shoulder 10/07/2023 17:44 Dov Mina [place] TYPE: Emergency DIAGNOSES: - Hypokalemia - Tubulo-interstitial nephritis, not specified as acute or chronic - Multiple Complaints INPATIENT VISIT TRACKING (12 MO.) No inpatient visits to display in this time frame [id number]
[2024-09-09] MEDS ORDERED: RAMIPRIL10 MG PO (15:23)
[2024-09-09] MEDS ORDERED: LAMOTRIGINE150 MG PO (15:23)
[2024-09-09 16:28] LABS: BILIRUBIN, URINE NEGATIVE (negative); BLOOD/HGB, URINE LARGE (Negative); KETONE, URINE NEGATIVE (Negative); LEUK ESTERASE, URINE NEGATIVE (negative); NITRITE, URINE NEGATIVE (negative)
[2024-09-09] MEDS ORDERED: HYDROCODONE/ACETA 7.5/325 TAB PO ONE (16:30)
[2024-09-09 16:34] LABS: EPITHELIAL CELLS, URINE SQUAMOUS 1+ /lpf (0-1+)
[2024-09-09 16:36] LABS: BACTERIA, URINE NONE SEEN /hpf (negative); CASTS, URINE NONE SEEN \\lpf; COLLECTION TYPE, URINE CLEAN CATCH; CRYSTALS, URINE NONE SEEN (0-1+); REFLEX CULTURE, URINE No (No)
[2024-09-09 16:39] LABS: BASOPHILS 0.7 % (0-2); EOSINOPHILS 1.8 % (0-6); HEMOGLOBIN 10.4 g/dL (12.0-18.0); LYMPHOCYTES 40.8 % (24-44); MCH 26.5 (27-36); MCHC 32.5 g/dl (30-36); MCV 81.5 fl (81-99); MONOCYTES 6.9 % (0-12); NEUTROPHILS 49.8 % (39-80); PLATELET COUNT 277 K/uL (140-440); RBC 3.93 M/ul (4.3-5.7); RDW 17.1 (10.5-15.0)
[2024-09-09 16:50] LABS: ALBUMIN 3.6 g/dL (3.4-5.0); ALBUMIN/GLOBULIN RATIO 1.09 (1.1-2.4); ANION GAP 12.7 (7-21); BILIRUBIN, TOTAL 0.3 mg/dL (0.2-1.0); BUN/CREATININE RATIO 11.88 (6.0-28.6); CALCIUM 8.9 mg/dL (8.5-10.1); CREATININE, SERUM 1.01 mg/dL (0.55-1.02); POTASSIUM 3.7 mmol/L (3.5-5.1); PROTEIN, TOTAL 6.9 g/dL (6.4-8.2)
[2024-09-09] MEDS ORDERED: IBUPROFEN 600 MG TAB PO ONE (17:15)
[2024-09-09 17:43] LABS: ERYTHROCYTE SEDIMENTATION RATE 19
[2024-09-09] MEDS ORDERED: HYDROCODON-ACE1 EA10 PO (18:08)
[2024-09-09 18:18] VITALS: BP 180/72
== END 2024-09-09 18:25 | disposition home or self-care (01) ==
LOC: ED 15:00
PROVIDERS: Emergency Medicine
DX: R51.9 Headache, unspecified (principal); I10 Essential (primary) hypertension; M26.603 Bilateral temporomandibular joint disorder, unspecified; F31.9 Bipolar disorder, unspecified; Z88.8 Allergy status to other drugs, medicaments and biological substances; Z88.5 Allergy status to narcotic agent; Z88.0 Allergy status to penicillin; Z79.899 Other long term (current) drug therapy; Z79.82 Long term (current) use of aspirin
CPT/HCPCS: 36415; 80053; 81001; 85025; 85651; 99284; A9270

== ENCOUNTER 2024-09-13 15:04 | Emergency (ER) | payer OTHER ==
[~2024-09-13] VITALS: Ht 157.5 cm; Wt 95.7 kg
[~2024-09-13 15:04] MED LIST changes: +LAMOTRIGINE150 MG PO; +RAMIPRIL10 MG PO
--- OUTSIDE RECORDS SUMMARY | 2024-09-13 15:11 | XMS ---
PreManage Notification: COLLETTE MILLAN Security Competitive Intelligence Manager Events No recent Security Events currently on file CRITERIA MET - 6 ED Visits in 6 Months - Group Notification - [facility] - 2 Visits in 30 Days CARE PROVIDERS TAYLA PHAM Nurse Practitioner: 03/31/2020-Current PHONE: [phone] TALI FRAZIER Physician Livestock Haulier 09/29/2018-Current PHONE: Unknown -, [facility]ist: Licensed Plumber Current [place] PHONE: [phone] KIMBERLY MAGANA [facility]: [facility] PHONE: [phone] SERGE [facility] Current PHONE: Unknown Mandeep has no Care Guidelines for this patient. Laura VISIT COUNT (12 MO.) 5 [facility] 1 Dov Morgan TOTAL 7 NOTE: Visits indicate total known visits. 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 - Other middle or intermediate school principal (current) drug therapy 05/31/2024 17:11 [facility] [place] TYPE: Emergency COMPLAINT: - JAW PAIN DIAGNOSES: - Allergy status to narcotic agent - Allergy status to other drugs, medicaments and biological substances - Allergy status to penicillin - Arthralgia of right temporomandibular joint - Essential (primary) hypertension - Headache, unspecified - Jaw pain - intermodal owner operator truck driver (current) use of aspirin - Other middle or intermediate school principal (current) drug therapy 05/28/2024 15:19 [facility] [place] TYPE: Emergency COMPLAINT: - HEADACHE DIAGNOSES: - Allergy status to narcotic agent - Allergy status to other drugs, medicaments and biological substances - Allergy status to penicillin - Bipolar disorder, unspecified - Essential (primary) hypertension - Headache, unspecified - [facility] (current) use of aspirin - Other long-term (current) drug therapy 04/14/2024 16:02 [facility] [place] TYPE: Emergency DIAGNOSES: - Irritant contact dermatitis due to cosmetics - ALLERGIC REACTION 03/30/2024 16:34 [facility] [place] TYPE: Emergency COMPLAINT: - SHOULDER INJURY DIAGNOSES: - Allergy status to narcotic agent - Allergy status to penicillin - Essential (primary) hypertension - intermodal owner operator truck driver (current) use of aspirin - Old myocardial infarction - Other cause of strike by thrown, projected or falling object, initial encounter - Other middle or intermediate school principal (current) drug therapy - Pain in left shoulder 10/07/2023 17:44 [facility] [place] TYPE: Emergency DIAGNOSES: - Hypokalemia - Tubulo-interstitial nephritis, not specified as acute or chronic - Multiple Complaints INPATIENT VISIT TRACKING (12 MO.) No inpatient visits to display in this time frame [email or web address]
[2024-09-13 16:25] LABS: BASOPHILS 0.7 % (0-2); EOSINOPHILS 1.7 % (0-6); HEMATOCRIT 30.8 % (35.0-50.0); HEMOGLOBIN 10.1 g/dL (12.0-18.0); LYMPHOCYTES 29.4 % (24-44); MCH 26.7 (27-36); MCHC 32.9 g/dl (30-36); MCV 81.1 fl (81-99); MONOCYTES 9.6 % (0-12); NEUTROPHILS 58.6 % (39-80); PLATELET COUNT 279 K/uL (140-440); RBC 3.79 M/ul (4.3-5.7); RDW 17.2 (10.5-15.0)
[2024-09-13 16:43] LABS: ALBUMIN 3.6 g/dL (3.4-5.0); ALBUMIN/GLOBULIN RATIO 1.2 (1.1-2.4); ANION GAP 8.1 (7-21); BILIRUBIN, TOTAL 0.3 mg/dL (0.2-1.0); BUN/CREATININE RATIO 9.9 (6.0-28.6); CALCIUM 9.2 mg/dL (8.5-10.1); CREATININE, SERUM 1.01 mg/dL (0.55-1.02); POTASSIUM 4.1 mmol/L (3.5-5.1); PROTEIN, TOTAL 6.6 g/dL (6.4-8.2)
[2024-09-13] MEDS ORDERED: KETOROLAC TROMETHAMINE 30 MG/ML VIAL IV ONE (17:00)
[2024-09-13] MEDS ORDERED: XANAX0.5 MG PO (17:21)
[2024-09-13 17:39] VITALS: BP 141/74
--- NOTE | 2024-09-14 13:01 | EKG ---
[facility] [address] [facility] [address] [place] [address] Signed Normal sinus rhythm Normal ECG When compared with ECG of 21-OCT-2022 15:55, No significant change was found Confirmed by Tashi Strong DO ([id number]) on 09/14/2024 1:01:11 PM Electronically Signed By: TASHI STRONG DO 09/14/24 1301 PATIENT NAME: COLLETTE MILLAN Electrocardiogram DATE OF : 63 PHYSICIAN: TASHI STRONG DO REPORT #: [id number] REPORT IS CONFIDENTIAL AND NOT TO BE RELEASED WITHOUT AUTHORIZATION
== END 2024-09-13 17:47 | disposition home or self-care (01) ==
LOC: ED 15:04
PROVIDERS: Emergency Medicine
DX: I10 Essential (primary) hypertension (principal); F43.9 Reaction to severe stress, unspecified; Z88.8 Allergy status to other drugs, medicaments and biological substances; Z88.5 Allergy status to narcotic agent; Z88.0 Allergy status to penicillin; Z79.899 Other long term (current) drug therapy; Z79.82 Long term (current) use of aspirin
CPT/HCPCS: 36415; 80053; 84484; 85025; 93005; 93010; 96374; 99283-25; J1885

== ENCOUNTER 2025-04-26 13:59 | Emergency (ER) | payer OTHER ==
[~2025-04-26] VITALS: Ht 157.5 cm; Wt 94.7 kg
--- OUTSIDE RECORDS SUMMARY | 2025-04-26 14:06 | XMS ---
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 EJose VISIT COUNT (12 MO.) [address] [facility] TOTAL 5 NOTE: Visits indicate total known visits. ED/UCC VISIT TRACKING (12 MO.) 04/26/2025 14:[address] [facility] [place] TYPE: Emergency COMPLAINT: - FLANK PAIN 09/13/2024 15:05 [facility] [place] [facility] [place] TYPE: Emergency COMPLAINT: - HIGH BLOOD PRESSURE DIAGNOSES: - Allergy status to narcotic agent - Allergy status to other drugs, medicaments and biological substances - Allergy status to penicillin - Essential (primary) hypertension - penitentiary (current) use of aspirin - Other watermelon inspector (current) drug therapy - Reaction to severe stress, unspecified 09/09/2024 15:01 [facility] [place] TYPE: Emergency COMPLAINT: - BLOOD PRESSURE PROBLEMS DIAGNOSES: - Allergy status to narcotic agent - Allergy status to other drugs, medicaments and biological substances - Allergy status to penicillin - Bilateral temporomandibular joint disorder, unspecified - Bipolar disorder, unspecified - Essential (primary) hypertension - Headache, unspecified - long term acute care registered nurse (current) use of aspirin - Other watermelon inspector (current) drug therapy 05/31/2024 17:11 [facility] [place] TYPE: Emergency COMPLAINT: - JAW PAIN DIAGNOSES: - Allergy status to narcotic agent - Allergy status to other drugs, medicaments and biological substances - Allergy status to penicillin - Arthralgia of right temporomandibular joint - Essential (primary) hypertension - Headache, unspecified - Jaw pain - long term acute care registered nurse (current) use of aspirin - Other watermelon inspector (current) drug therapy 05/28/2024 15:19 [facility] [place] TYPE: Emergency COMPLAINT: - HEADACHE DIAGNOSES: - Allergy status to narcotic agent - Allergy status to other drugs, medicaments and biological substances - Allergy status to penicillin - Bipolar disorder, unspecified - Essential (primary) hypertension - Headache, unspecified - penitentiary (current) use of aspirin - Other correction (current) drug therapy INPATIENT VISIT TRACKING (12 MO.) No inpatient visits to display in this time frame [email or web address]
[2025-04-26] MEDS ORDERED: KETOROLAC TROMETHAMINE 15 MG/ML VIAL IV ONE (14:45)
[2025-04-26] MEDS ORDERED: PRILOSEC OTC20 MG PO (14:45)
[2025-04-26] MEDS ORDERED: DRIZALMA SPRINK20 MG PO (14:46)
[2025-04-26 14:49] LABS: BLOOD/HGB, URINE LARGE (Negative); KETONE, URINE NEGATIVE (Negative); LEUK ESTERASE, URINE NEGATIVE (negative); NITRITE, URINE NEGATIVE (negative)
[2025-04-26 14:59] LABS: BACTERIA, URINE NONE SEEN /hpf (negative); CASTS, URINE NONE SEEN \\lpf; CRYSTALS, URINE NONE SEEN (0-1+); EPITHELIAL CELLS, URINE SQUAMOUS 1+ /lpf (0-1+); REFLEX CULTURE, URINE No (No)
[2025-04-26 15:00] LABS: BASOPHILS 0.7 % (0.1-1.2); EOSINOPHILS 1.8 % (0.7-5.8); LYMPHOCYTES 31.0 % (19.3-51.7); MCH 27.5 PG (25.6-32.2); MCHC 31.1 g/dL (32.2-35.5); MCV 88.2 fL (79.4-94.8); MONOCYTES 8.0 % (4.7-12.5); NEUTROPHILS 58.5 % (34.0-71.1); RBC 4.15 M/uL (3.93-5.22)
[2025-04-26 15:16] LABS: ALT (SGPT) 36.0 U/L (14-59); AST (SGOT) 19.0 U/L (15-37); GLOMERULAR FILTRATION RATE,EST 84.0 mL/min (>60); PROTEIN, TOTAL 7.0 g/dL (6.4-8.2); UREA NITROGEN 10.0 mg/dL (7-18)
[2025-04-26] MEDS ORDERED: ONDANSETRON ODT8 MG PO (17:19)
[2025-04-26] MEDS ORDERED: HYDROCODONE/ACETA 5/325 TAB PO ONE (17:30)
[2025-04-26 17:45] VITALS: BP 146/83
== END 2025-04-26 17:47 | disposition home or self-care (01) ==
LOC: ED 13:59
PROVIDERS: Emergency Medicine
DX: R10.9 Unspecified abdominal pain (principal); N20.0 Calculus of kidney; I10 Essential (primary) hypertension; Z88.0 Allergy status to penicillin; Z88.5 Allergy status to narcotic agent; Z88.8 Allergy status to other drugs, medicaments and biological substances; Z79.82 Long term (current) use of aspirin; Z79.899 Other long term (current) drug therapy
CPT/HCPCS: 36415; 74176; 80053; 81001; 84703; 85025; 96374; 96375; 99284-25; J1885; J2405